=== PATIENT | male | born 2000 | race Caucasian/White ===

== ENCOUNTER 2018-09-13 12:24 | Emergency (ER) | payer MEDICAID, SELFPAY ==
[2018-09-13 12:28] VITALS: BP 126/53; PULSE 47; RESP 12; TEMP 36.6; O2SAT 100; BMI 18.7
--- NOTE | 2018-09-13 12:48 | CT_ITS ---
STUDY: CT ABDOMEN AND PELVIS WITHOUT CONTRAST REASON FOR EXAM: Male, 17 years old. 3 day history of left flank pain. RADIATION DOSAGE (If Supplied By Facility): CTDIvol = ( 6.04 ) mGy, DLP = ( 292.95 ) mGycm TECHNIQUE: Transaxial images were obtained from the dome of the diaphragm to the symphysis pubis without oral contrast, and without intravenous contrast. Sagittal and coronal images were reconstructed. Individualized dose optimization techniques were used for this CT. COMPARISON: None. FINDINGS: The visualized lung bases are unremarkable. The visualized portions of the heart are within normal limits. Normal liver. Normal gallbladder and extrahepatic biliary system. Normal spleen. Normal pancreas. Normal bilateral adrenal glands. Normal right kidney. Normal left kidney. Normal visualized stomach. Normal small intestine. Normal colon. The appendix is visualized and appears normal. Normal abdominal aorta. Normal inferior vena cava. Normal retroperitoneum. Normal urinary bladder. Normal abdominal wall. Loss of the normal lumbar lordosis. CT/Abdomen/Pelvis without Cont IMPRESSION: Normal unenhanced CT of the abdomen and pelvis. Electronically Signed: Blayne Dyer MD at 14:00 EST Tel [phone], Service support ,
[2018-09-13 13:09] LABS: Absolute Neutrophil Count 5.7 X10^3/uL (2.0-7.7); Basophil# 0.02 X10^3/uL; Basophil% 0.2 % (0-1); Eosinophil# 0.04 X10^3/uL; Eosinophils% 0.5 % (0-5); Hematocrit 40.4 % (40-54); Hemoglobin 14.2 g/dl (13.0-16.5); Lymphocyte % 17.1 % (19-41); Mean Corp Hgb Conc 35.1 g/gl (32-36); Mean Platelet Vol. 11.8 fl (6.2-12.0); Monocyte# 1.47 X10^3/uL; Monocyte% 16.8 % (0-10); Neutrophil # 5.71 X10^3/uL (2.7-7.7); Neutrophil % 65.2 % (47-70); POSITIVE COUNT NO; POSITIVE DIFFERENTIAL NO; POSITIVE MORPHOLOGY NO; Platelet Count 153 K/mm3 (150-450); RBC Distribution Width CV 12.2 % (11.6-14.6); RBC Distribution Width SD 40.2 fl (35.1-43.9); Red Blood Count 4.44 M/mm3 (4.6-6.2); White Blood Count 8.8 K/mm3 (4.4-11.0)
[2018-09-13] MEDS: Morphine 4 MG/ML Syringe IV (13:18)
[2018-09-13] MEDS: Ondansetron 4 MG/2 ML Vial IV (13:18)
[2018-09-13] MEDS: 0.9% Normal Saline 1,000 ML 1000 ML IV (13:18)
[2018-09-13 13:22] LABS: AST(SGOT) 20 U/L (15-37); Alanine Aminotransfer ALT/SGPT 19 U/L (16-61); Albumin, Serum 4.1 g/dL (3.2-5.0); Alkaline Phosphatase 62 U/L (45-117); Anion Gap 7 (5-15); BUN 13 mg/dL (7-18); BUN/Creat Ratio 16.4 RATIO (10-20); Chloride 107 mmol/L (98-107); Creatinine, Serum 0.79 mg/dL (0.70-1.30); EST Glomerular Filtration Rate 133 mL/min (>60); Est Glom Filt Rate - Afr Amer 161 mL/min (>60); Estimated Creatinine Clearance 118.92 ml/min; Globulin 3.5 g/dL (2.2-4.2); Glucose 99 mg/dL (74-106); Lipase 35 U/L (73-393); Potassium 4.5 mmol/L (3.5-5.1); Protein, Total 7.6 g/dL (6.4-8.2); Sodium Level 140 mmol/L (136-145)
--- NOTE | 2018-09-13 13:30 | ED.VISSUMM ---
- ER Visit Summary Date of Service: 09/13/18 Chief Complaint: [] Left flank pain since Thursday History of Present Illness: The patient is a 17 M [] denies past history has been had left flank pain since Thursday that he states causes a spasm makes him feel like he has to have a bowel movement he cannot, he was seen today by his family physician outpatient provider, he had office workup rectal exam was unremarkable he had persistent sense of spasm he came to the emergency room for evaluation. He has had no fever no cough he did not eat anything and was not exposed to anything that could have made him ill he has no history of GI elements in fact he denies any past history no meds he does believe his stool has been dark outputs been normal no fever no cough trauma I did speak with his physician Dr. Horn he reports the above history also reported patient had a negative rectal exam today in the office Physical Examination: [] 126/53 afebrile, General, no distress resting comfortably HEENT is generally unremarkable The neck is supple no adenopathy Cardiovascular, regular rate and rhythm Lungs, clear bilateral Abdomen, soft nontender he complains of a vague pain to the left flank the abdominal exams nontender no rebound guarding organomegaly, he negative rectal exam as above in the office declined further rectal, he had a vague left CVAT tenderness no midline back pain Extremities, no clubbing cyanosis or edema Neurologic, awake alert answering questions appropriately moving all 4 extremities Reports a constant urge to have a bowel movement given all the above screening labs CT IV fluids pain management Test Results: [] Emergency Department Course and Treatment: [] LUIS SÁNCHEZ On reevaluation patient symptoms are completely resolved he has no pain he is resting comfortably bed feels back to baseline Patient's labs UA CT flank abdomen unremarkable there is no signs of constipation nothing that appears acute I explained the above to him, at this time started on Bentyl, bland diet and follow-up with his family doctors the next few days Treatment Plan: [] Disposition: [] Home stable Impression: [] Left flank pain etiology unclear This note was generated with [employer] software. It may contain incorrect words, spelling, and punctuation that were not noted in review of the chart prior to signing ED Disposition - Plan for ED Patient: Chief Complaint: Flank Pain Instructions: ED Flank Pain Uncertain Cause Prescriptions: Dicyclomine HCl [Bentyl] 20 mg PO TIDAC #20 cap Referrals: Nathan Rajput MD [Primary Care Provider] -
[2018-09-13 14:53] VITALS: RESP 16
[2018-09-13 14:57] LABS: Bacteria 0 SEEN /hpf (None Seen); Mucous, Urine 0 SEEN /hpf (<or=2+); Red Blood Cells-Urine 0 SEEN /hpf (0-5); Squamous Epithelial Cells - UA 0 SEEN /hpf (0-5); White Blood Cells 0 SEEN /hpf (0-5)
[2018-09-13] MEDS: 0.9% Normal Saline 1,000 ML 999 ML IV (14:58)
[2018-09-13 15:01] LABS: Color, Urine Yellow (Yellow); Glucose, Dipstick Normal (Normal); Ketone-Dipstick 50 mg/dl (Negative); Leukocyte Esterase-Dipstick Negative /ul (Negative); Nitrite-Dipstick Negative (Negative); Occult Blood-Urine Negative /ul (Negative); Protein-Dipstick Negative (Negative); Urine Bilirubin Dipstick Negative (Negative); Urine Clarity Sl. Cloudy (Clear); Urine Urobilinogen Normal (Normal)
[2018-09-13 15:10] LABS: Amorphous Sediment 2+
--- NOTE | 2018-09-13 15:15 | ED.DEP ---
ED Disposition - Plan for ED Patient: Chief Complaint: Flank Pain Instructions: ED Flank Pain Uncertain Cause Prescriptions: Dicyclomine HCl [Bentyl] 20 mg PO TIDAC #20 cap Referrals: Nathan Rajput MD [Primary Care Provider] -
== END 2018-09-13 16:09 | disposition home or self-care (01) ==
PROVIDERS: Emergency Provider Emergency Medicine; Family Provider Pediatrics; PCP Pediatrics
DX: R10.9 Unspecified abdominal pain (principal)
CPT/HCPCS: 74176; 80048; 80076; 81001; 83690; 85025; 96361; 96374; 96375; 99283; J7030; A4216; J2405

== ENCOUNTER 2018-12-15 16:18 | Emergency (ER) | payer MEDICAID, SELFPAY ==
[2018-12-15 16:19] VITALS: BP 141/75; PULSE 38; RESP 18; TEMP 36.1; O2SAT 100; BMI 17.7
== END 2018-12-15 17:26 | disposition left against medical advice (07) ==
LOC: ED 17:24
PROVIDERS: Emergency Provider Emergency Medicine; Family Provider Pediatrics; PCP Pediatrics
DX: R00.1 Bradycardia, unspecified (principal)

== ENCOUNTER 2018-12-16 16:10 | Emergency (ER) | payer MEDICAID, SELFPAY ==
[2018-12-15 16:19] VITALS: BMI 17.7
[2018-12-16 16:13] VITALS: BP 132/86; PULSE 61; RESP 17; TEMP 36.3; O2SAT 98; BMI 18.3
--- NOTE | 2018-12-16 17:14 | EKG12_ITS ---
Test Reason : CINTIA Blood Pressure : / mmHG Vent. Rate : 040 BPM Atrial Rate : 040 BPM P-R Int : 154 ms QRS Dur : 102 ms QT Int : 432 ms P-R-T Axes : 078 093 080 degrees QTc Int : 352 ms Marked sinus bradycardia Early repolarization Confirmed by BABAK HOLLAND MD ([id number]), editor managing director EVERETT BENTON ([id number]) on 12/21/2018 8:44:25 AM Referred By: Confirmed By:BABAK HOLLAND MD
[2018-12-16 18:12] LABS: Absolute Lymphocyte Count 1.78 X10^3/ul (0.83-4.51); Absolute Neutrophil Count 4.2 X10^3/uL (2.0-7.7); Basophil# 0.03 X10^3/uL; Basophil% 0.5 % (0-1); Eosinophil# 0.15 X10^3/uL; Eosinophils% 2.3 % (0-5); Hematocrit 44.2 % (40-54); Hemoglobin 14.4 g/dl (13.0-16.5); Lymphocyte # 1.78 X10^3/ul (4.0); Lymphocyte % 26.7 % (19-41); Mean Corp Hgb Conc 32.6 g/gl (32-36); Mean Corpuscular Hgb 31.1 pg (27.0-32.0); Mean Corpuscular Volume 95.5 fL (80-94); Mean Platelet Vol. 12.1 fl (6.2-12.0); Monocyte# 0.48 X10^3/uL; Monocyte% 7.2 % (0-10); Platelet Count 176 K/mm3 (150-450); RBC Distribution Width CV 12.8 % (11.6-14.6); RBC Distribution Width SD 44.3 fl (35.1-43.9); Red Blood Count 4.63 M/mm3 (4.6-6.2); White Blood Count 6.7 K/mm3 (4.4-11.0)
[2018-12-16 18:14] LABS: POSITIVE COUNT NO; POSITIVE DIFFERENTIAL NO; POSITIVE MORPHOLOGY NO
[2018-12-16 18:35] LABS: Anion Gap 4 (5-15); BUN 15 mg/dL (7-18); BUN/Creat Ratio 19.3 RATIO (10-20); Calcium,Total 8.8 mg/dL (8.5-10.1); Chloride 106 mmol/L (98-107); Creatinine, Serum 0.78 mg/dL (0.70-1.30); EST Glomerular Filtration Rate 135 mL/min (>60); Est Glom Filt Rate - Afr Amer 164 mL/min (>60); Glucose 78 mg/dL (74-106); Magnesium 1.9 mg/dL (1.6-2.6); Potassium 4.4 mmol/L (3.5-5.1); Sodium Level 139 mmol/L (136-145); T4 Free Direct 0.81 ng/dL (0.76-1.46); Thyroid Stim Hormone (TSH) 0.49 uIU/mL (0.358-3.74)
[2018-12-16 18:37] VITALS: BP 109/56; PULSE 43; RESP 13; O2SAT 96
[2018-12-16 19:04] LABS: T3 Total - Triiodothyronine 0.83 ng/mL (0.6-1.81)
--- NOTE | 2018-12-16 19:36 | ED.VISSUMM ---
- ER Visit Summary Date of Service: 12/16/18 Chief Complaint: Bradycardia History of Present Illness: The patient is a 18 M who went to see his PCP yesterday for anxiety. He was noted to be bradycardic and was sent to the emergency room. He left without being seen yesterday due to a busy ER. Patient reports occasional lightheadedness. He reports a single episode of syncope several years ago. He does not have palpitations. He is not currently taking any medications. Physical Examination: Blood pressure is 132/86, temperature 97.3, heart rate 61, respiratory rate 17, socks 98% on room air. Patient sitting upright in bed no acute distress. He is alert and talkative. Head neck examination normal. Is bradycardic and regular. Lungs sounds clear. Abdomen is soft nontender. Test Results: EKG is sinus at 40. There are inferior changes consistent with early repol. CBC and chemistry studies are unremarkable. Magnesium is normal. TSH, T3, free T4 are all normal. Emergency Department Course and Treatment: Patient was maintained on chief executive or managing director here. Heart rate ranged from upper 30s to low 60s. I did review patient's prior visits to the emergency room. 2 years ago his heart rate was in the low 50s. He was seen September [id number] with a heart rate of 47. His vital signs yesterday documented a heart rate of 38. Patient does have EKGs and paperwork from his PCPs office with him. EKG revealed heart rate in the 30s in the office yesterday. He does have repol changes that is often read by the EKG machine as a STEMI. Test results were discussed with the patient. I spoke with Dr. Santana, on-call for the patient's primary care physician. Patient is to call the office tomorrow for further follow-up and cardiology referral. Patient understands the plan. Treatment Plan: [] Disposition: Discharge Impression: Bradycardia This note was generated with [employer] dictation software. It may contain incorrect words, spelling, and punctuation that were not noted in review of the chart prior to signing ED Disposition - Plan for ED Patient: Disposition: Home or Assisted Living Instructions: ED Bradycardia Referrals: Luis Hilliard MD [Primary Care Provider] - As soon as possible Additional Instructions: Call Dr Hilliard's office tomorrow. They will help arrange follow-up with a heart doctor. If you have recurrent episodes of dizziness or passing out, please return to ED immediately.
[2018-12-16 19:44] VITALS: BP 107/61; PULSE 51; RESP 16; O2SAT 98
--- NOTE | 2018-12-16 19:44 | ED.RN ---
THIS NURSE REVIEWED D/C INSTRUCTIONS WITH PT. PT VERBALIZED UNDERSTANDING OF INSTRUCTIONS. IV D/C. IV CATHETER INTACT. PT TOLERATED WELL. PT DENIES FURTHER NEEDS OR QUESTIONS AT THIS TIME. PT AMBULATES FROM ROOM ON OWN WITHOUT ASSISTANCE FROM STAFF
== END 2018-12-16 19:46 | disposition home or self-care (01) ==
PROVIDERS: Emergency Provider Emergency Medicine; Family Provider Family Medicine; PCP Family Medicine
DX: R00.1 Bradycardia, unspecified (principal); F41.9 Anxiety disorder, unspecified; Z72.0 Tobacco use; Z79.899 Other long term (current) drug therapy
CPT/HCPCS: 80048; 83735; 84439; 84443; 84480; 85025; 93005; 99284; A4216

== ENCOUNTER 2025-10-10 18:31 | Emergency (ER) | payer BC, SELFPAY ==
[2025-10-10 18:35] VITALS: BP 153/98; PULSE 58; RESP 20; TEMP 36.4; O2SAT 95; BMI 18.1
--- NOTE | 2025-10-10 18:47 | EX.ED.DYSGE1 ---
HPI History of Present Illness Chief Complaint: Overdose [facility] Medical History (Updated 10/10/25 @ 18:42 by Oliva Jaffe) Bradycardia Home Medications ?Medication ?Instructions ?Recorded ?Last Taken ?Type NK 10/10/25 Unknown History Allergy/AdvReac Type Severity Reaction Status Date / Time Penicillins (PCN) Allergy Unknown Verified 10/10/25 18:40 Social History Smoking Status: Current every day smoker tobacco type: cigarettes EXAM Physical Exam Const Vital Signs: 10/10/25 18:35 10/10/25 19:31 10/10/25 20:00 Temperature 97.6 F L Temperature Source Oral Pulse Rate 58 L 78 72 Respiratory Rate 20 H 18 16 Blood Pressure 153/98 H 169/78 H 144/92 H Blood Pressure Mean 116 108 109 Pulse Ox 95 95 96 Oxygen Delivery Method Room Air Room Air Room Air 10/10/25 20:56 Temperature Temperature Source Pulse Rate 69 Respiratory Rate 16 Blood Pressure 137/85 H Blood Pressure Mean 102 Pulse Ox 98 Oxygen Delivery Method Room Air MDM MDM MDM Narrative Medical decision making narrative: HISTORY OF PRESENT ILLNESS: Chief complaint: Intentional overdose 24-year-old male with no reported history presents with concern for suicidal attempt. Patient notes he tried to kill himself by snorting a large amount of ketamine. Patient could not elaborate on why he attempted this today. He may have a history of bipolar disorder but is not medicated. He denies homicidal ideation auditory visual loose [place]. Denies any physical complaints. Denies any other drug use. REVIEW OF SYSTEMS: Pertinent positives: Suicidal ideation Pertinent negatives: Chest pain, shortness of breath. PHYSICAL EXAM: Nursing triage notes reviewed, Vital signs reviewed Constitutional: please see mdm HENT: MMM Eyes: Pupils equal round and reactive to light, Extraocular muscles intact Neck: No stridor, no JVD, full neck ROM Lungs: Clear to auscultation, No wheezing or rales. No increased work of breathing, no conversational dyspnea, no accessory muscle use, no nasal flaring. No respiratory distress noted Heart: Regular rate and rhythm, No murmurs, No rubs and No gallops, 2+ distal pulses (radial, femoral, posterior tibial) in all extremities Abdomen: Soft, there is no tenderness, rigidity, rebound or guarding, no obvious peritoneal signs, no palpable pulsatile abdominal masses, no auscultated abdominal bruit : No CVAT Extremities: No edema Neuro: No new focal neurological deficits, cranial nerves II through XII intact, 5/5 strength in all present extremities. Intact sensation to light touch in all present extremities, 2+ reflexes bilateral patella tendons. Skin: No rash or lesions noted Psych: Flat affect, goal-directed thought process, not tangential, does not appear to responding to internal stimuli. MEDICAL DECISION MAKING: Chief Complaint: please see HPI External records reviewed: Reviewed prior ED visit Factors affecting care: depression, Social determinants of health: History of mental health disorder History obtained from others: Police Consults: Behavioral health MDM Narrative: Patient was initially hemodynamically stable, afebrile and nontoxic-appearing. Exam unremarkable. Patient did not appear to be under the effects of ketamine. For example there is no nystagmus noted Obtain medical clearance labs including coingestions like Tylenol and salicylate levels. Consult to case management/behavioral health ALL IMAGES (IF OBTAINED) HAVE BEEN PERSONALLY REVIEWED AND INTERPRETED BY MYSELF. Tylenol, salicylate negative Serum alcohol negative CBC with leukocytosis suggestive of systemic inflammation (likely not clinically relevant as patient does not have a fever or source of infection) this may be reactive, no anemia or thrombocytopenia CMP without evidence of acute kidney injury, significant electrolyte abnormality, anion gap to suggest end organ hypo-perfusion, no evidence of metabolic acidosis with a normal bicarbonate, no evidence of hepatobiliary obstructive pathology. Urine tox screen positive cannabinoids otherwise negative Suicidal attempt Patient was observed in the ED and showed no sign of ketamine intoxication. There is no nystagmus, no loss of consciousness, no dissociative response. Patient's vitals remained stable. He was medically cleared. Behavioral health/crisis evaluated patient in ED and recommended placement. I agree with this assertion given concern for suicide attempt. Arrangements will be made for inpatient psychiatric stay. [place] slip signed. Transport form signed. The patient and/or family, caregivers express understanding. The patient and/or family, caregivers agrees with the plan. Shared decision making: I will have a discussion with the patient and or visitors regarding risk/benefits of further testing or admission. They will be made aware of of the risk/benefits inherent in this decision they will be given the opportunity to voice understanding. Total critical care time today provided was at least 0 minutes. This excludes separately billable procedures. Critical care time (if documented) is secondary to the patient having high probability of clinically significant/life threatening deterioration in the patient's condition which required my urgent intervention. Impression: 1. Suicide attempt 2. Suicidal ideation 3. Attempted overdose Dispo: Transfer to psychiatric facility. Patient currently excepted at outside psych facility awaiting transport which did occur at approximately 7 AM on 10/11/2025. This note was generated with [employer] dictation software. It may contain incorrect words, spelling, and punctuation that were not noted in review of the chart prior to signing. Lab Data Labs: Laboratory Results - last 24 hr 10/10/25 10/10/25 18:20 19:00 WBC 13.1 H RBC 5.02 Hgb 16.3 Hct 46.9 MCV 93.4 MCH 32.5 H MCHC 34.8 RDW Std Deviation 44.3 H RDW Coeff of Monse 12.9 Plt Count 213 MPV 11.7 Immature Gran % (Auto) 0.500 Neut % (Auto) 71.9 H Lymph % (Auto) 17.7 L [place] % (Auto) 8.6 Eos % (Auto) 0.8 Baso % (Auto) 0.5 Absolute Neuts (auto) 9.4 H Absolute Lymphs (auto) 2.33 Nucleated RBC % 0 Sodium 141 Potassium 3.6 Chloride 103 Carbon Dioxide 21.7 Anion Gap 16 BUN 17 Creatinine 0.94 Estim Creat Clear Calc 93.65 Est GFR (MDRD) Non-Af 115 BUN/Creatinine Ratio 18.6 Glucose 123 H Calcium 10.0 Total Bilirubin 0.43 AST 39 H ALT 36 Alkaline Phosphatase 88 Total Protein 8.7 H Albumin 5.2 H Globulin 3.4 Albumin/Globulin Ratio 1.5 Salicylates < 0.5 L Urine Opiates Screen NEGATIVE U Buprenorphine Qual NEGATIVE Ur Oxycodone Screen NEGATIVE Urine Methadone Screen NEGATIVE Urine Fentanyl Screen NEGATIVE Acetaminophen < 5.0 L Ur Barbiturates Screen NEGATIVE Ur Phencyclidine Scrn NEGATIVE Ur Amphetamines Screen NEGATIVE U Benzodiazepines Scrn NEGATIVE Urine Cocaine Screen NEGATIVE U Cannabinoids Screen PRESUMPTIVE POSITIVE Ethyl Alcohol < 10.1 Discharge Plan Triage Chief Complaint: Overdose Other Complaint: Suicidal ED Provider: Duy Oseguera Dx/Rx/DC Orders Prescriptions: No Action NK Primary Care Provider: Luis Hilliard Referrals: Luis Hilliard MD [Primary Care Provider, Family Practice] Print Language: Romanian
[2025-10-10 19:06] LABS: Hematocrit 46.9 % (40-54); Hemoglobin 16.3 g/dL (13.0-16.5); Immature Granulocytes Count 0.060 X10^3/uL (0.0-0.0); Mean Corp Hgb Conc 34.8 g/dL (32-36); Mean Corpuscular Volume 93.4 fL (80-94); Mean Platelet Vol. 11.7 fl (6.2-12.0); NRBC Flagged by Analyzer 0 % (0-5); Platelet Count 213 K/mm3 (150-450); RBC Distribution Width CV 12.9 % (11.6-14.6); RBC Distribution Width SD 44.3 fl (35.1-43.9); Red Blood Count 5.02 M/mm3 (4.6-6.2); White Blood Count 13.1 K/mm3 (4.4-11.0)
[2025-10-10 19:26] LABS: AST(SGOT) 39 U/L (<=37); Alanine Aminotransfer ALT/SGPT 36 U/L (<=46); Albumin, Serum 5.2 g/dL (3.5-5.0); Alkaline Phosphatase 88 U/L (40-129); Anion Gap 16 (7-18); BUN 17 mg/dL (4-19); BUN/Creat Ratio 18.6 RATIO (10-20); Calcium,Total 10.0 mg/dL (7.6-11.0); Carbon Dioxide 21.7 mmol/L (20.0-29.0); Chloride 103 mmol/L (96-106); Estimated Creatinine Clearance 93.65 ml/min (50-250); Globulin 3.4 g/dL (2.2-4.2); Glucose 123 mg/dL (70-99); Potassium 3.6 mmol/L (3.5-5.1)
[2025-10-10 19:31] VITALS: BP 169/78; PULSE 78; RESP 18; O2SAT 95
[2025-10-10 19:34] LABS: Barbiturate Urine NEGATIVE (< 200 ng/mL); Benzodiazepine Urine NEGATIVE (< 200 ng/mL); PCP Urine NEGATIVE (< 25 ng/mL); THC Urine PRESUMPTIVE POSITIVE (< 50 ng/mL)
--- NOTE | 2025-10-10 19:46 | CM.ED ---
Social Work SW initially showed with no insurance, SW contacted crisis to complete assessment. Face sheet, pink slip and physician note faxed to crisis. SW met with patient to explain process and patient stated he did have insurance through his employer. Patient stated he did not have his insurance card with him but could call a friend and have them bring his card to ED. SW got patients phone and gave to patient to contact friend. fruit or nut farmworker already in ED, notified that patient does have active insurance. No further needs at this time. Muna Pike, WAREHOUSE REPRESENTATIVE, SOLDERER
[2025-10-10 20:00] VITALS: BP 144/92; PULSE 72; RESP 16; O2SAT 96
[2025-10-10 20:05] LABS: Acetaminophen (Tylenol) Level < 5.0 ug/mL (8.0-19.0); Alcohol, Blood (Medical)-Serum < 10.1 mg/dL (<=10.0); Salicylate < 0.5 mg/dL (2.8-20.0)
--- OUTSIDE RECORDS SUMMARY | 2025-10-10 20:32 | XMS RPT_ITS | CCD ---
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 Role Phone Dion Hilliard MD Primary Care Provider DION HILLIARD Primary Care Unavailab NANY Rich Attending Unavailable DION HILLIARD Primary Care Unavailab DION Geller Primary Care Unavailab stratton Allergies Allergy Classification Reported Allergen(s) Allergy Type Date of Onset Reaction(s) Facility (6 sources) Penicillins; Translations: [PENICILLINS] Propensity to adverse reactions 03-05-2007 [facility] Work Phone: Medications Completed/Discontinued Medications Medication Drug Class(es) Dates Sig (Normalized) Sig (Original) sertraline 50 mg oral tablet (4 sources) Serotonin Reuptake Inhibitor Start: 12-15-2018 End: 08-02-2024 take 1 tablet by mouth once daily sertraline (ZOLOFT) 50 mg tablet Indications: Moderate episode of recurrent major depressive disorder (HCC) , Marijuana smoker Take 1 tablet by mouth once daily. 30 tablet 3 12/15/2018 08/02/2024 Discontinued (Discontinued by Patient) Comment on above: Take 1 tablet by brigitte once daily. Problems Active Problems Problem Classification Problem Date Documented Da te Episodic/Chronic Abdominal pain (1 source) Flank pain; Translations: [Unspecified abdominal pain] 01-04-2024 Episodic Anxiety disorders (5 sources) Anxiety; Translations: [Anxiety disorder, unspecified] Onset: 02-16-2015 02-16-2015 Chronic Mood disorders (5 sources) Depressive disorder; Translations: [Depression] 12-15-2018 Chronic Other non-traumatic joint disorders (1 source) Pain of left wrist; Translations: [Pain in left wrist] 11-12-2021 Episodic Substance-related disorders (5 sources) Marijuana user; Translations: [Cannabis use, unspecified, uncomplicated] 12-15-2018 Episodic Past or Other Problems Problem Classification Problem Date Documented Da te Episodic/Chronic Genitourinary symptoms and ill-defined conditions (6 sources) Increased frequency of urination; Translations: [Frequency of micturition] Onset: 01-05-2024 01-04-2024 Episodic Other screening for suspected conditions (not mental disorders or infectious disease) (3 sources) Patient encounter status; Translations: [Encounter for screening for other disorder] Onset: 01-05-2024 01-05-2024 Episodic Results Test Name Value Interpretation Reference Range Facil it[facility] SAMIR ALL[facility] ([id number]) 2000 Date Time Provider Department 08/03/24 ELLIOTT PAULINO [facility] During your visit today, we recorded the following information about you: Mario Thomas MA 08/03/2024 7:26 AM Signed ----- Message from Alhaji Zamarripa APRN.FRUIT BAR MAKER sent at 08/03/2024 7:04 AM EDT ----- Please inform patient that her gonorrhea and Chlamydia test were negative. Mario Thomas MA 08/03/2024 7:26 AM Signed Patient given results and verbalized understanding of instructions given. Mario Thomas MA Allergies As of Date: 08/03/2024 Noted Allergy Reaction PENICILLINS 03/05/2007 Date Reviewed: 08/02/2024 Reviewed by: Juana Stevenson APRN.FRUIT BAR MAKER - Fully Assessed Reason for Visit: Results [95] Meds Comments as of 08/11/2018: 08/11/18 No daily medications Julieta Singh RN Problem List As Of Date 08/03/2024 Noted Resolved Anxiety [F41.9] 02/16/2015 Depression [F32.A] Marijuana smoker [F12.90] Encounter Status:Closed by MARIO THOMAS on 08/03/24 Normal [facility] C. trachomatis+N. gonorrhoea e DNA MAME+probe Ql (Unsp spec)on 08-02-2024 C. trachomatis rRNA MAME+probe Ql (Unsp spec) Negative Normal Negative for Chlamydia trachomatis by amplificaton [facility] Comment on above: Order Comment: Speci men Type: URINE SPECIMENOrdering Facility: [facility] Address: [address] [place] [address] Performed By: #### 6 30-4 #### [facility] CLIA [id number] [address] [place] [address] STATES OF [facility] N. gonorrhoeae rRNA MAME+probe Ql (Unsp spec) Negative Normal Negative for Neisseria gonorrhoeae by amplification [facility] Comment on above: Order Comment: Speci men Type: URINE SPECIMENOrdering Facility: [facility] Address: [address] [place] [address] Performed By: #### 6 30-4 #### [facility] CLIA [id number] [address] [place] [address] [place] CNOVon 08-02-2024 CNOV Office Visit (UCTR ) SAMIR ALLISON ([id number]) 2000 M Date Time Provider Department 08/02/24 10:00 AM JUANA STEVENSON [facility] During your visit today, we recorded the following information about you: Temperature Pulse Respiration Blood pressure 97.1 degrees 56/minute 16/minute 123/73 Weight 58.8 kg Juana Stevenson APRN.CNP 08/02/2024 5:43 PM Addendum Subjective HPI Nontoxic-appearing male presents urgent care requesting STD testing. States recently had a new sexual partner. Concerned about possible STDs. No symptoms. Patient denies any history of STDs in the past. Had unprotected vaginal intercourse. Denies any penile drainage testicular pain scrotal swelling rashes. Past medical history prescription medications allergies reviewed. .Patient presents with: STD: No sx, wants checked PAST MEDICAL HISTORY Diagnosis Date ADHD (attention deficit hyperactivity disorder) Anxiety Broken finger 2014 pinky right hand Broken wrist 2005 Pt broke right wrist Depression Marijuana smoker Tobacco use disorder PAST SURGICAL HISTORY Procedure Laterality Date NONE ALLERGIES Penicillins MEDICATIONS No prescriptions on file. FAMILY HISTORY Problem Relation Age of Onset Alcohol/Drug Mother COPD Mother other (bipolar) Mother Alcohol/Drug Father Alcohol/Drug Sister drug overdose Bipolar disorder Sister Cancer Paternal Aunt lung Social History Tobacco Use Smoking status: Every Day Current packs/day: 1.00 Average packs/day: 1 pack/day for 9.8 years (9.8 ttl pk-yrs) Types: Cigarettes Start date: 10/23/2014 Smokeless tobacco: Never Tobacco comments: 1-2 every other day Vaping Use Vaping status: Some Days Substances: Nicotine, THC, CBD, Flavoring Devices: Disposable Substance Use Topics Alcohol use: Not Currently Comment: rarely Drug use: Yes Frequency: 14.0 times per week Types: Marijuana BP 123/73 Pulse (!) 56 Temp 36.2 ?C (97.1 ?F) Resp 16 Wt 58.8 kg (129 lb 10.1 oz) SpO2 98% BMI 19.42 kg/m? Review of Systems Constitutional: Negative for chills, fever and malaise/fatigue. Cardiovascular: Negative for chest pain. Gastrointestinal: Negative for abdominal pain, constipation, diarrhea, nausea and vomiting. Genitourinary: Negative for dysuria, flank pain, frequency, hematuria and urgency. Musculoskeletal: Negative for myalgias. Objective Physical Exam Vitals and nursing note reviewed. Constitutional: General: He is not in acute distress. Appearance: He is not diaphoretic. HENT: Head: Jaw: No trismus. Right Ear: Hearing and ear canal normal. No decreased hearing noted. No drainage, swelling or tenderness. Tympanic membrane is not perforated, erythematous or bulging. Left Ear: Hearing, tympanic membrane and ear canal normal. No decreased hearing noted. No drainage, swelling or tenderness. Tympanic membrane is not perforated, erythematous or bulging. Mouth/Throat: Pharynx: Uvula midline. No oropharyngeal exudate, posterior oropharyngeal erythema or uvula swelling. Tonsils: No tonsillar abscesses. Eyes: General: Right eye: No discharge. Left eye: No discharge. Conjunctiva/sclera: Conjunctivae normal. Pupils: Pupils are equal, round, and reactive to light. Cardiovascular: Rate and Rhythm: Normal rate and regular rhythm. Heart sounds: Normal heart sounds. Pulmonary: Effort: Pulmonary effort is normal. No respiratory distress. Breath sounds: Normal breath sounds. Chest: Chest wall: No tenderness. Abdominal: General: Bowel sounds are normal. There is no distension. Palpations: Abdomen is soft. Abdomen is not rigid. Tenderness: There is no abdominal tenderness. There is no guarding or rebound. Negative signs include Bashir's sign and McBurney's sign. Genitourinary: Comments: Deferred exam Musculoskeletal: General: No tenderness. Lymphadenopathy: Head: Right side of head: No submental, submandibular, tonsillar, preauricular, posterior auricular or occipital adenopathy. Left side of head: No submental, submandibular, tonsillar, preauricular, posterior auricular or occipital adenopathy. Cervical: Right cervical: No superficial or posterior cervical adenopathy. Left cervical: No superficial or posterior cervical adenopathy. Skin: General: Skin is warm and dry. Findings: No rash. Neurological: Mental Status: He is alert and oriented to person, place, and time. ASSESSMENT/PLAN: 1. Screening for STD (sexually transmitted disease) - ICD9: V74.5, ICD10: Z11.3 - GONORRHEA/CHLAMYDIA NAAT Gonorrhea chlamydia test via urine dip. Treat accordingly test results. Since its only been 48 hours since new sexual partner this test will not be sensitive to any recent exposure. Patient was educated on supportive therapies. Patient will follow up with primary care provider as needed. Patient (more content not included)... Normal [facility] ([id number]) 2000 M Date Time Provider Department 01/06/24 JAYANT COTTRELL During your visit today, we recorded the following information about you: Jayant Cottrell APRN.CNP 01/06/2024 8:23 AM Signed Please notify urine culture negative. Continue f/u with urology. Alejandra Mcgraw 01/06/2024 9:11 AM Signed Called patient and voicemail is not set up so could not leave message. Will try to call back later. Mario Schmitt MA 01/06/2024 6:00 PM Signed Patient given results and verbalized understanding of instructions given. Mario Thomas MA Allergies As of Date: 01/06/2024 Noted Allergy Reaction PENICILLINS 03/05/2007 Date Reviewed: 01/05/2024 Reviewed by: Leroy Willson LPN - Fully Assessed Reason for Visit: Results [95] Prescriptions as of 01/06/2024 - sertraline (ZOLOFT) 50 mg tablet Take 1 tablet by mouth once daily. Meds Comments as of 08/11/2018: 08/11/18 No daily medications Julieta Singh RN Problem List As Of Date 01/06/2024 Noted Resolved Anxiety [F41.9] 02/16/2015 Depression [F32.A] Marijuana smoker [F12.90] Encounter Status:Closed by MARIO THOMAS on 01/06/24 [facility] CNOVon 01-05-2024 CNOV Office Visit (UROLWS ) SAMIR ALLISON ([id number]) 2000 M Date Time Provider Department 01/05/24 11:00 AM NANY CARLOS During your visit today, we recorded the following information about you: Temperature Pulse Respiration Blood pressure 98.1 degrees 64/minute 12/minute 108/76 Weight Height 60.1 kg 1.74 m Demetris LeroyBENNY parker 01/05/2024 6:49 PM Signed Verified name and date of . CC Post Void Residual HPI: Samir Allison is a 23 year old male. The patient is here now for an appointment with SARAH Loco MT, PA-COV. Procedure: Explained procedure to patient and verbalizes understanding. Performed a PVR. Patient urinated and instructed to empty bladder as much as possible just prior to having PVR done using bladder ultrasound scanner. Results of scan: x mL The patient tolerated the procedure well. Plan: Appointment with Nany Benson PA-C 01/05/2024 6:49 PM Signed [facility] NEW PATIENT CLINIC NOTE SERVICE DATE: 01/05/2024 SERVICE TIME: 11:44 AM NAME: Samir Allison CHIEF COMPLAINT: hematuria HISTORY OF PRESENT ILLNESS: Samir Allison is a 23 year old male presenting as an New Patient for hematuria The patient reports having abdominal pain and pubic pain and was seen at urgency care and found to have to have blood on UA Dicussed hematuria and he denies any gross hematuria so will get 3 UA with Microscopic if all 3 have RBC's will need a full hematuria work-up Urine culture is pending No renal imaging , and will need Renal US LUTS: DYSURIA: no URGENCY: No FREQUENCY:6 per day NOCTURIA: 0 per night STRAINING TO VOID: No EMPTIES COMPLETELY: Yes UTI: No GROSS HEMATURIA: no UA DIPSTICK POSITIVE ONLY: yes Other symptoms: LABS: No results found for: TESTOST No results found for: TESTFREE No results found for: PSA No results found for: HCT No results found for: PSA Creatinine Date Value Ref Range Status 12/21/2018 0.84 0.73 - 1.22 mg/dL Final MEDICATIONS: sertraline (ZOLOFT) 50 mg tablet Take 1 tablet by mouth once daily. PAST MEDICAL HISTORY: PAST MEDICAL HISTORY Diagnosis Date ADHD (attention deficit hyperactivity disorder) Anxiety Broken finger 2014 pinky right hand Broken wrist 2005 Pt broke right wrist Depression Marijuana smoker Tobacco use disorder PAST SURGICAL HISTORY: PAST SURGICAL HISTORY Procedure Laterality Date NONE FAMILY HISTORY: FAMILY HISTORY Problem Relation Age of Onset Alcohol/Drug Mother COPD Mother other (bipolar) Mother Alcohol/Drug Father Alcohol/Drug Sister drug overdose Bipolar disorder Sister Cancer Paternal Aunt lung SOCIAL HISTORY: Social Connections: Not on file REVIEW OF SYSTEMS: GENERAL: No fever, chills, weight loss, or fatigue. ENMT: Negative CARDIOVASCULAR:NO CHEST PAIN, PALPITATIONS, ANKLE EDEMA RESPIRATORY: No chronic cough, wheezing, dyspnea, hemoptysis. GENITOURINARY: SEE HPI MUSCULOSKELETAL:NO CHRONIC BACK PAIN, ARTHRITIS, CHRONIC NECK PAIN SKIN: NO VARICOSE VEINS, RASH, ABNORMAL ITCHING HEME/LYMPH/IMMUNE:Neg ative for prolonged bleeding, bruising easily or swollen nodes NEUROLOGICAL: NO HEADACHES, NUMBNESS, SEIZURES, STROKE DIABETES: no All other systems reviewed and are negative PHYSICAL EXAMINATION: Blood pressure 108/76, pulse 64, temperature 36.7 ?C (98.1 ?F), temperature source Temporal, resp. rate 12, height 174 cm (5' 8.5), weight 60.1 kg (132 lb 6.4 oz), SpO2 97%. GENERAL: WNL nutrition, no deformities, healthy appearing NEURO: Awake, alert and oriented x 3 and Normal gait PSYCH: No signs of depression, anxiety, or agitation ENMT (Ear, Nose, Mouth, Throat): No masses, adenopathy, icterus. Thyroid nonpalpable RESP: NL effort, no retractions or purse-lip breathing. CV: No extremity swelling, varices, edema, pallor, erythema GASTROINTESTINAL: Soft, nontender, nondistended, no masses. HERNIAS: None SKIN: No rash, lesions No palpable lymphadenopathy MUSCULOSKELETAL: Extremities normal. No deformities, edema, clubbing or skin discoloration. PROBLEM LIST REVIEW: Yes LABS: Results for orders placed or performed in visit on 01/04/24 UA DIP, URINE (POC) Result Value Ref Range GLUCOSE UA (POCT) Negative Negative mg/dL BILIRUBIN UA (POCT) Negative Negative KETONE UA (POCT) Negative Negative mg/dL SPECIFIC GRAVITY UA (POCT) 1.025 1.005 - 1.030 HEMOGLOBIN/BLOOD UA (POCT) Moderate (A) Negative PH UA (POCT) 7.0 4.5 - 8.0 PROTEIN UA (POCT) Negative Negative mg/dL UROBILINOGEN UA (POCT) 1.0 Normal E.U./dL NITRITE UA (POCT) Negative Negative LEUKOCYTES UA (POCT) Negative Negative COLOR UA (POCT) Yellow CLARITY UA (POCT) Clear Urine Microscopy x 3 - pending Urine Culture: Pending PROCEDURES: PVR: 9 ml IMAGING: (more content not included)... Normal [facility] Urinalysis complete panel (U )on 01-05-2024 Bacteria LM.HPF (Urine sed) [#/Area] Negative Negative /HPF [facility] Bilirubin Ql (U) Negative Negative [facility] Clarity (Unsp spec) Turbid Abnormal Clear [facility] Color (U) Yellow Yellow [facility] Epithelial cells LM.HPF (Urine sed) [#/Area] None Seen [facility] Glucose Test strip (U) [Mass/Vol] Negative Negative [facility] Hemoglobin Ql (U) Negative Negative [facility] Hyaline casts (Urine sed) [#/Area] 0 /[LPF] 0 /LPF [facility] Ketones Ql (U) Negative Negative [facility] Leukocyte esterase Test strip Ql (U) Negative Negative [facility] Nitrite Ql (U) Negative Negative [facility] pH (U) 7.0 [pH] <8.5 [facility] Protein (U) [Mass/Vol] Trace Abnormal Negative [facility] RBC LM.HPF (Urine sed) [#/Area] 0-2 /HPF 0-2 /HPF [facility] Specific gravity (U) [Rel density] 1.028 1.005 - 1.030 [facility] Urobilinogen Ql (U) 1.0 EU/dL 0.2-1.0 EU/dL [facility] WBC LM.HPF (Urine sed) [#/Area] 0-5 /HPF 0-5 /HPF [facility] Bacteria LM.HPF (Urine sed) [#/Area] Negative Normal Negative [facility] Comment on above: Order Comment: Speci men Type: URINE SPECIMEN [facility] Address: [address] [place] [address] Performed By: #### 2 4356-8 #### [facility] CLIA [id number] [address] [place] [address] [place] [address] [place] Bilirubin Ql (U) Negative Normal Negative [facility] Comment on above: Order Comment: Speci men Type: URINE SPECIMEN [facility] Address: [address] [place] [address] Performed By: #### 2 4356-8 #### [facility] CLIA [id number] [address] [place] [address] [place] Clarity (Unsp spec) Turbid Abnormal Clear [facility] Comment on above: Order Comment: Speci men Type: URINE SPECIMEN [facility] Address: [address] [place] [address] Performed By: #### 2 4356-8 #### [facility] CLIA [id number] [address] [place] [address] [place] Color (U) Yellow Normal Yellow [facility] Comment on above: Order Comment: Speci men Type: URINE SPECIMEN [facility] Address: [address] [place] [address] Performed By: #### 2 4356-8 #### [facility] CLIA [id number] [address] [place] [address] [place] Epithelial cells LM.HPF (Urine sed) [#/Area] None Seen Normal [facility] Comment on above: Order Comment: Speci men Type: URINE SPECIMEN [facility] Address: [address] [place] [address] Performed By: #### 2 4356-8 #### [facility] CLIA [id number] [address] [place] [address] [place] Glucose Test strip (U) [Mass/Vol] Negative Normal Negative [facility] Comment on above: Order Comment: Speci men Type: URINE SPECIMEN [facility] Address: [address] [place] [address] Performed By: #### 2 4356-8 #### [facility] CLIA [id number] [address] [place] [address] [place] Hemoglobin Ql (U) Negative Normal Negative [facility] Comment on above: Order Comment: Speci men Type: URINE SPECIMEN [facility] Address: [address] [place] [address] Performed By: #### 2 4356-8 #### [facility] CLIA [id number] [address] [place] [address] [place] Hyaline casts (Urine sed) [#/Area] 0 /[LPF] Normal 0 /LPF [facility] Comment on above: Order Comment: Speci men Type: URINE SPECIMEN [facility] Address: [address] [place] [address] Performed By: #### 2 4356-8 #### [facility] CLIA [id number] [address] [place] [address] [place] Ketones Ql (U) Negative Normal Negative [facility] Comment on above: Order Comment: Speci men Type: URINE SPECIMEN [facility] Address: [address] [place] [address] Performed By: #### 2 4356-8 #### [facility] CLIA [id number] [address] [place] [address] [place] Leukocyte esterase Test strip Ql (U) Negative Normal Negative [facility] Comment on above: Order Comment: Speci men Type: URINE SPECIMEN [facility] Address: [address] [place] [address] Performed By: #### 2 4356-8 #### [facility] CLIA [id number] [address] [place] [address] [place] Nitrite Ql (U) Negative Normal Negative [facility] Comment on above: Order Comment: Speci men Type: URINE SPECIMEN [facility] Address: [address] [place] [address] Performed By: #### 2 4356-8 #### [facility] CLIA [id number] [address] [place] [address] [place] pH (U) 7.0 [pH] Normal <8.5 [facility] Comment on above: Order Comment: Speci men Type: URINE SPECIMEN [facility] Address: [address] [place] [address] Performed By: #### 2 4356-8 #### [facility] CLIA [id number] [address] [place] [address] [place] Protein (U) [Mass/Vol] Trace Abnormal Negative [facility] Comment on above: Order Comment: Speci men Type: URINE SPECIMEN [facility] Address: [address] [place] [address] Performed By: #### 2 4356-8 #### [facility] CLIA [id number] [address] [place] [address] [place] RBC LM.HPF (Urine sed) [#/Area] 0-2 /HPF Normal 0-2 /HPF [facility] Comment on above: Order Comment: Speci men Type: URINE SPECIMEN [facility] Address: [address] [place] [address] Performed By: #### 2 4356-8 #### [facility] CLIA [id number] [address] [place] [address] [place] Specific gravity (U) [Rel density] 1.028 Normal 1.005-1.030 [facility] Comment on above: Order Comment: Speci men Type: URINE SPECIMEN [facility] Address: [address] [place] [address] Performed By: #### 2 4356-8 #### [facility] CLIA [id number] [address] [place] [address] [place] Urobilinogen Ql (U) 1.0 EU/dL Normal 0.2-1.0 EU/dL [facility] Comment on above: Order Comment: Speci men Type: URINE SPECIMEN [facility] Address: [address] [place] [address] Performed By: #### 2 4356-8 #### [facility] CLIA [id number] [address] [place] [address] [place] WBC LM.HPF (Urine sed) [#/Area] 0-5 /HPF Normal 0-5 /HPF [facility] Comment on above: Order Comment: Speci men Type: URINE SPECIMEN [facility] Address: [address] [place] [address] Performed By: #### 2 4356-8 #### [facility] [place] [id number] [address] [place] [address] [place] Bacteria Ur Culton Bacteria identified Cx Nom (U) CULTURE, URINE: No growth (<1,000 CFU/ml) Normal [facility] Comment on above: Performed By: #### 6 30-4 #### [facility] CLIA [id number] [address] [place] [address] [place] CNOVon 01-04-2024 CNOV Office Visit (WSTR ) SAMIR ALLISON ([id number]) 2000 M Date Time Provider Department 01/04/24 5:00 PM TOY HORNE [facility] During your visit today, we recorded the following information about you: Temperature Pulse Respiration Blood pressure 98.6 degrees 60/minute 16/minute 122/78 Weight 60.5 kg Toy Horne PA 01/04/2024 5:18 PM Signed This note was created using [employer]. Subjective Samir Allison is a 23 year old male. HPI 23-year-old male presents for left lower abdominal pain, urinary urgency x 3 days. Patient states he started getting left-sided flank pain radiating towards his left lower abdomen over the past couple of days. He states the pain is now in his lower groin/bladder area. Pain is a 1/10. States it is a dull ache currently. Denies any nausea, vomiting, back pain. Has not noticed any blood in his urine. He states he feels the urge to urinate, but then only goes a small amount. He is still urinating. No burning with urination. No concern for STD. No penile discharge. No testicular pain. No history of kidney stones. PAST MEDICAL HISTORY Diagnosis Date ADHD (attention deficit hyperactivity disorder) Anxiety Broken finger 2014 pinky right hand Broken wrist 2005 Pt broke right wrist Depression Marijuana smoker PAST SURGICAL HISTORY Procedure Laterality Date NONE ALLERGIES Penicillins MEDICATIONS sertraline (ZOLOFT) 50 mg tablet Take 1 tablet by mouth once daily. (Patient not taking: Reported on 11/12/2021 ) FAMILY HISTORY Problem Relation Age of Onset Alcohol/Drug Mother COPD Mother other (bipolar) Mother Alcohol/Drug Father Alcohol/Drug Sister drug overdose Bipolar disorder Sister Cancer Paternal Aunt lung Social History Tobacco Use Smoking status: Every Day Types: Cigarettes Start date: 10/23/2014 Smokeless tobacco: Never Tobacco comments: 1-2 every other day Substance Use Topics Alcohol use: Yes Comment: rarely Drug use: Yes Frequency: 14.0 times per week Types: Marijuana Comment: quit 4 days ago Review of Systems Constitutional: Negative for chills and fever. HENT: Negative for congestion and sore throat. Respiratory: Negative for cough and shortness of breath. Gastrointestinal: Positive for abdominal pain. Negative for diarrhea and vomiting. Genitourinary: Positive for dysuria, flank pain, hematuria and urgency. Objective BP 122/78 Pulse 60 Temp 37 ?C (98.6 ?F) (Tympanic) Resp 16 Wt 60.5 kg (133 lb 6.1 oz) SpO2 96% BMI 19.70 kg/m? Physical Exam Vitals and nursing note reviewed. Constitutional: General: He is not in acute distress. Appearance: Normal appearance. He is not toxic-appearing. HENT: Nose: Nose normal. Mouth/Throat: Mouth: Mucous membranes are moist. Eyes: Conjunctiva/sclera: Conjunctivae normal. Cardiovascular: Rate and Rhythm: Normal rate and regular rhythm. Pulmonary: Effort: Pulmonary effort is normal. Breath sounds: Normal breath sounds. Abdominal: General: Abdomen is flat. Palpations: Abdomen is soft. Tenderness: There is no abdominal tenderness. There is no right CVA tenderness or left CVA tenderness. Skin: General: Skin is warm and dry. Neurological: Mental Status: He is alert. Assessment and Plan ASSESSMENT/PLAN: 1. Urinary frequency - ICD9: 788.41, ICD10: R35.0 (primary diagnosis) acute - UA positive for hematuria - Send urine for culture - Patient education for prevention given - UA DIP, URINE (POC) - URINE CULTURE 2. Microscopic hematuria - ICD9: 599.72, ICD10: R31.29 -Patient had left-sided flank pain and left lower quadrant abdominal pain. Current pain 1/10. Tenderness on exam. + blood in urine. Suspect possible ureteral stone. -At this time in the evening, unable to get kidney ultrasound. Will send urine for culture and refer to urology. -Recommend drinking plenty of fluids. If pain becomes severe, vomiting, inability to urinate, fevers, needs to be seen in ER. He understands. -We were able to schedule the patient an appointment with urology tomorrow. - CONSULT TO UROLOGY 3. Flank pain - ICD9: 789.09, ICD10: R10.9 -See above. Current pain 1/10. Advised if pain worsens, go to ER. -Has an appointment with urology tomorrow. Diagnosis and treatment plan were discussed and questions were answered to the patient's satisfaction. Pt acknowledged understanding of concepts and follow up plan. Specific signs and symptoms that would indicate the need for higher level of care were discussed in detail warranting prompt ER evaluation. ARIN Galan Allergies As of Date: 01/04/2024 Noted Allergy Reaction PENICILLINS 03/05/2007 Date Reviewed: 01/04/2024 Reviewed by: Berenice Sung LPN - Fully Assessed Reason for Visit: Urinary Frequency [1086] Cmt: Frequency, urgency and lower abdominal pain x 2 days (more content not included)... Normal [facility] UA DIP, URINE (POC)on 2023 BILIRUBIN UA (POCT) Negative Negative [facility] CLARITY UA (POCT) Clear [facility] COLOR UA (POCT) Yellow [facility] GLUCOSE UA (POCT) Negative Negative mg/dL [facility] Hemoglobin Ql (U) Moderate Abnormal Negative [facility] KETONE UA (POCT) Negative Negative mg/dL [facility] LEUKOCYTES UA (POCT) Negative Negative [facility] NITRITE UA (POCT) Negative Negative [facility] PH UA (POCT) 7.0 4.5 - 8.0 [facility] Protein Ql (U) Negative Negative mg/dL [facility] beds at [facility] SPECIFIC GRAVITY UA (POCT) 1.025 1.005 - 1.030 [facility] UROBILINOGEN UA (POCT) 1.0 E.U./dL Normal E.U./dL [facility] XR Wrist - left PA and Later al and Obliqueon 11-12-2021 * * *Final Report* * * DATE OF EXAM: Nov 12 2021 6:43PM WOX 5270 - XR WRIST 3V PA/LAT/OBL LT / PROCEDURE REASON: Left wrist pain * * * * Physician Interpretation * * * * Indication: Left wrist pain Comparison: None 3 views of the left wrist are obtained. There is normal architecture and mineralization of the bones. There is no acute fracture or dislocation. Joint spaces are maintained. Impression: 1. No acute fracture or dislocation. Program Evaluation Consultant: THOMAS Transcribe Date/Time: Nov 12 2021 6:48P Dictated by : TOMI HAMMOND MD This examination was interpreted and the report reviewed and electronically signed by: TOMI HAMMOND MD on Nov 12 2021 6:49PM [facility] DIVISION OF RADIOLOGY Provider, [facility] - 11/12/2021 * * *Final Report* * * DATE OF EXAM: Nov 12 2021 6:43PM WOX 5270 - XR WRIST 3V PA/LAT/OBL LT / PROCEDURE REASON: Left wrist pain * * * * Physician Interpretation * * * * Indication: Left wrist pain Comparison: None 3 views of the left wrist are obtained. There is normal architecture and mineralization of the bones. There is no acute fracture or dislocation. Joint spaces are maintained. Impression: 1. No acute fracture or dislocation. Program Evaluation Consultant: PSCB Transcribe Date/Time: Nov 12 2021 6:48P Dictated by : TOMI HAMMOND MD This examination was interpreted and the report reviewed and electronically signed by: TOMI HAMMOND MD on Nov 12 2021 6:49PM EST [facility] Radiology Study observation (narrative) [facility] XR Wrist - left PA and Later al and ObliqueOrdered By: Ccf Provider on 11-12-2021 [facility] Vital Signs Date Time Vital Sign Value Performing Clinician Faci lity 08-02-2024 10:15-0400 Body mass index (BMI) [Ratio] 19.42 kg/m2 Juana Stevenson APRN.[employer]UIT [employer]KER Work Phone: [facility] 08-02-2024 10:15-0400 Body temperature 97.11 [degF] Juana Stevenson [employer] ARCHITECT.[employer]UIT [employer]KER Work Phone: [facility] 08-02-2024 10:15-0400 Body weight 58.8 kg Juana Stevenson [employer] ARCHITECT.[employer]ER Work Phone: [facility] 08-02-2024 10:15-0400 Diastolic blood pressure 73 mm[Hg] Juana Stevenson [employer] ARCHITECT.[employer]KER Work Phone: [facility] 08-02-2024 10:15-0400 Heart rate 56 /min Juana Stevenson [employer] ARCHITECT.[employer]UIT [employer]KER Work Phone: [facility] 08-02-2024 10:15-0400 Respiratory rate 16 /min Juana Stevenson [employer] ARCHITECT.FRUIT [employer]KER Work Phone: [facility] 08-02-2024 10:15-0400 SaO2% (BldA) [Mass fraction] 98 % Juana Stevenson [employer] ARCHITECT.FRUIT [employer]KER Work Phone: [facility] 08-02-2024 10:15-0400 Systolic blood pressure 123 mm[Hg] Juana Stevenson [employer] ARCHITECT.[employer]UIT [employer]KER Work Phone: [facility] 01-05-2024 11:15-0400 Body height 174 cm Nany Carlos PA-C Work Phone: [facility] 01-05-2024 11:15-0400 Body temperature 98.1 [degF] Nany Carlos PA-C Work Phone: [facility] 01-05-2024 11:15-0400 Body weight 60.06 kg Nany Carlos PA-C Work Phone: [facility] 01-05-2024 11:15-0400 Diastolic blood pressure 76 mm[Hg] Nany Carlos PA-C Work Phone: [facility] 01-05-2024 11:15-0400 Heart rate 64 /min Nany Carlos PA-C Work Phone: [facility] 01-05-2024 11:15-0400 Respiratory rate 12 /min Nany Carlos PA-C Work Phone: [facility] 01-05-2024 11:15-0400 SaO2% (BldA) [Mass fraction] 97 % Nany Carlos PA-C Work Phone: [facility] 01-05-2024 11:15-0400 Systolic blood pressure 108 mm[Hg] Nany Carlos PA-C Work Phone: [facility] 01-04-2024 16:56-0400 Body temperature 98.6 [degF] Krislyn Aberegg PA Work Phone: [facility] 01-04-2024 16:56-0400 Body weight 60.5 kg Krislyn Aberegg PA Work Phone: [facility] 01-04-2024 16:56-0400 Diastolic blood pressure 78 mm[Hg] Krislyn Aberegg PA Work Phone: [facility] 01-04-2024 16:56-0400 Heart rate 60 /min Krislyn Aberegg PA Work Phone: [facility] 01-04-2024 16:56-0400 Respiratory rate 16 /min Krislyn Aberegg PA Work Phone: [facility] 01-04-2024 16:56-0400 SaO2% (BldA) [Mass fraction] 96 % Toy HINKLE Work Phone: [facility] 01-04-2024 16:56-0400 Systolic blood pressure 122 mm[Hg] Toy HINKLE Work Phone: [facility] Encounters Encounter Date Encounter Type Care Provider Facility Start: 08-03-2024 End: 08-03-2024 Telephone encounter Elliott Paulino MD Work Phone: [facility] Comment on above: Results Start: 08-02-2024 End: 08-02-2024 ambulatory [facility] Facility:[facility] Start: 08-02-2024 End: 08-02-2024 Office outpatient visit 15 minutes Juana Stevenson APRN.CNP Work Phone: [facility] Comment on above: Screening for STD (s exually transmitted disease) (Primary Dx) Start: 01-05-2024 End: 01-05-2024 Patient encounter procedure Nany Carlos PA-C Work Phone: Urology Comment on above: Microscopic hematuri a (Primary Dx); Urinary frequency; Screening for genitourinary condition Start: 01-05-2024 End: 01-05-2024 ambulatory NANY CARLOS Facility:[facility] Start: 01-04-2024 End: 01-04-2024 [facility] Facility:[facility] Start: 01-04-2024 End: 01-04-2024 Patient encounter procedure Toy HINKLE Work Phone: [facility] Comment on above: Urinary frequency (P rimary Dx); Microscopic hematuria; Flank pain Start: 11-12-2021 End: 11-12-2021 Subsequent hospital visit by physician Ronnell [facility] Jenny Work Phone: Radiology Comment on above: Left wrist pain [M25 .532] Procedures Date Procedure Procedure Detail Performing Clinician Start: 01-05-2024 Urnls dip stick/tabl et reagent auto microscopy Nany Carlos PA-C Work Phone: Start: 01-04-2024 Urnls dip stick/tabl et rgnt auto w/o microscopy Roberta Rainey [employer] ARCHITECT.DUNCAN Work Phone: Start: 11-12-2021 Radex wrist complete minimum 3 views Roberta Rainey [employer] ARCHITECT.DUNCAN Work Phone: Plan of Treatment Date Care Activity Detail Author Start: 06-12-2024 Covid-19 Vaccine ( season) Covid-19 Vaccine () [facility] Start: 06-12-2024 Influenza vaccination Influenza Vacc ine (#1) [facility] Start: 01-26-2024 End: 04-26-2024 Urinalysis complete panel - Urine URINALYSIS, WITH MICROSCOPIC Lab Routine Microscopic hematuria Expected: 01/26/2024 (Approximate), Expires: 04/26/2024 [facility] Work Phone: Comment on above: Expected: 01/26/2024 (Approximate), Expires: 04/26/2024 Start: 01-05-2024 End: 04-05-2024 Urinalysis complete panel - Urine URINALYSIS, WITH MICROSCOPIC Lab Routine Microscopic hematuria Expected: 01/05/2024 (Approximate), Expires: 04/05/2024 [facility] Work Phone: Comment on above: Expected: 01/05/2024 (Approximate), Expires: 04/05/2024 Start: 06-12-2023 Covid-19 Vaccine ( season) Covid-19 Vaccine ( season) [facility] Start: 06-12-2023 Influenza vaccination Influenza Vacc ine (#1) [facility] Start: 01-13-2022 Urine microalbumin profile DTaP,Tdap,Td Vaccine (8 - Td or Tdap) [facility] Start: 2016 Hepatitis C screening Hepatitis C Sc reening [facility] Start: 2016 HIV screening HIV Screening [facility] Start: 2012 Peds To Adult Transition Annual Assessment Peds To Adult Transition Annual Assessment [facility] Start: 2010 Peds To Adult Transition Initial Discussion Peds To Adult Transition Initial Discussion [facility] Start: 2004 Pneumococcal vaccination Pneumococcal Vaccine (1 of 2 - PCV) [facility] Bacteria identified in Urine by Culture URINE CULTURE Microbiology Routine Urinary frequency Ordered: 01/04/2024 [facility] Work Phone: Comment on above: Ordered: 01/04/2024 Chlamydia trachomatis+Neisseria gonorrhoeae DNA [Presence] in Unspecified specimen by MAME with probe detection GONORRHEA/CHLAMYDIA NAAT Lab Routine Screening for STD (sexually transmitted disease) Ordered: 08/02/2024 [facility] Work Phone: Comment on above: Ordered: 08/02/2024 POST VOID RESIDUAL POST VOID RES IDUAL Procedures Routine Microscopic hematuria Screening for genitourinary condition Urinary frequency Ordered: 01/05/2024 [facility] Work Phone: Comment on above: Ordered: 01/05/2024 US Kidney - bilatera l and Urinary bladder US KIDNEY/BLADDER Radiology Routine Microscopic hematuria Ordered: 01/05/2024 [facility] Work Phone: Comment on above: [facility]: [facility] Immunization Date Immunization Notes Care Provider Estuardo rucker 02-16-2015 human papilloma viru s vaccine, quadrivalent Toy Horne PA Work Phone: [facility] 02-16-2015 meningococcal polysaccharide (groups A, C, Y and W-135) diphtheria toxoid conjugate vaccine (MCV4P) Toy HINKLE Work Phone: [facility] 12-09-2013 human papilloma viru s vaccine, quadrivalent Chaunceyislyn Aberegg PA Work Phone: [facility] 08-26-2012 human papilloma viru s vaccine, quadrivalent Chaunceyislyn Abricha PA Work Phone: [facility] 08-26-2012 influenza virus vacc ine, unspecified formulation Toy HINKLE Work Phone: [facility] 08-26-2012 varicella virus vaccine Yonathan HINKLE Work Phone: [facility] 01-14-2012 diphtheria, tetanus toxoids and acellular pertussis vaccine, 5 pertussis antigens Krislyn Aberegg PA Work Phone: [facility] Work Phone: 01-14-2012 Meningococcal, MCV4, unspecified conjugate formulation(groups A, C, Y and W-135) Krislyn Aberegg PA Work Phone: [facility] 01-14-2012 tetanus toxoid, redu rd diphtheria toxoid, and acellular pertussis vaccine, adsorbed Krislyn Aberegg PA Work Phone: [facility] 01-14-2012 varicella virus vaccine Yonathan evelio Aberegg PA Work Phone: [facility] 11-06-2009 novel influenza-H1N1 -09, all formulations Krislyn Aberegg PA Work Phone: [facility] Work Phone: 09-11-2003 diphtheria, tetanus toxoids and acellular pertussis vaccine, 5 pertussis antigens Krislyn Aberegg PA Work Phone: [facility] Work Phone: 09-11-2003 measles, mumps and rubella virus vaccine Krislyn Aberegg PA Work Phone: [facility] 09-11-2003 poliovirus vaccine, inactivated Krislyn Aberegg PA Work Phone: [facility] 11-04-2002 diphtheria, tetanus toxoids and acellular pertussis vaccine, 5 pertussis antigens Krislyn Aberegg PA Work Phone: [facility] Work Phone: 04-17-2000 diphtheria, tetanus toxoids and acellular pertussis vaccine, 5 pertussis antigens Krislyn Aberegg PA Work Phone: [facility] Work Phone: 04-17-2000 haemophilus influenz ae type b vaccine, HbOC conjugate Krislyn Aberegg PA Work Phone: [facility] Work Phone: 04-17-2000 hepatitis B vaccine, pediatric or pediatric/adolescent dosage Krislyn Aberegg PA Work Phone: [facility] Work Phone: 04-17-2000 measles, mumps and rubella virus vaccine Krislyn Aberegg PA Work Phone: [facility] 04-17-2000 poliovirus vaccine, inactivated Krislyn Aberegg PA Work Phone: [facility] 07-05-1999 diphtheria, tetanus toxoids and acellular pertussis vaccine, 5 pertussis antigens Krislyn Aberegg PA Work Phone: [facility] Work Phone: 07-05-1999 haemophilus influenz ae type b vaccine, HbOC conjugate Krislyn Aberegg PA Work Phone: [facility] Work Phone: 07-05-1999 poliovirus vaccine, inactivated Krislyn Aberegg PA Work Phone: [facility] 03-25-1999 diphtheria, tetanus toxoids and acellular pertussis vaccine, 5 pertussis antigens Krislyn Aberegg PA Work Phone: [facility] Work Phone: 03-25-1999 haemophilus influenz ae type b vaccine, HbOC conjugate Krislyn Aberegg PA Work Phone: [facility] Work Phone: 03-25-1999 hepatitis B vaccine, pediatric or pediatric/adolescent dosage Krislyn Aberegg PA Work Phone: [facility] 03-25-1999 poliovirus vaccine, inactivated Krislyn Aberegg PA Work Phone: [facility] 1998 hepatitis B vaccine, pediatric or pediatric/adolescent dosage Krislyn Aberegg PA Work Phone: [facility] Payers Date Payer Category Payer Medicaid [id number] 2021 Medicaid [id number] Social History Date Type Detail Facility Start: 10-23-2014 End: 08-02-2024 Tobacco smoking status NHIS Smokes tobacco daily [facility] Start: 10-23-2014 History of tobacco use Cigarette Smo ker [facility] Start: 12-21-2018 End: 08-02-2024 Tobacco use and exposure Smokeless tobacco non-user [facility] Start: 11-12-2021 End: 01-04-2024 Alcohol intake Current drinker of alcohol (finding) [facility] Start: 01-04-2024 End: 01-05-2024 History of Social function [facility] Start: 01-04-2024 End: 01-05-2024 Tobacco use panel [facility] Adult Depression Scr eening Assessment 4 [facility] Start: 12-21-2018 End: 01-05-2024 Tobacco Comment 1-2 every other day [facility] Start: 12-15-2018 Alcohol Comment rarely [facility] Start: 1998 Sex Assigned At Not on file C [facility] Start: 01-05-2024 End: 08-02-2024 Alcohol intake Ex-drinker (finding) [facility] Clinical Notes 01-04-2024 to 08-03-2024 Telephone Encounter - Mario Thomas MA - 08/03/2024 7:26 AM EDTTelephone Encounter - Mario Thomas MA - 08/03/2024 7:26 AM EDTTelephone Encounter - Mario Thomas MA - 08/03/2024 7:26 AM EDT Note Date & Type Note Facility 08-03-2024 Telephone encounter Note Patient given results and verbalized understanding of instructions given. Mario Thomas MA [facility] 08-03-2024 Telephone encounter Note ----- Message from Alhaji Zamarripa APRN.[employer]UIT [employer]KER sent at 08/03/2024 7:04 AM EDT ----- Please inform patient that her gonorrhea and Chlamydia test were negative. [facility] 08-03-2024 Miscellaneous Notes Patient given results and verbalized understanding of instructions given. Mario Thomas MA ----- Message from Alhaji Zamarripa APRN.FRUIT BAR MAKER sent at 08/03/2024 7:04 AM EDT ----- Please inform patient that her gonorrhea and Chlamydia test were negative. documented in this encounter [facility] 08-02-2024 Note HNO ID: [id number] Author: JUANA STEVENSON APRN.CNP Service: ? Author Type: Nurse Practitioner Type: Progress Notes Filed: 08/02/2024 17:43 Note Text: Subjective HPI Nontoxic-appearing male presents urgent care requesting STD testing. States recently had a new sexual partner. Concerned about possible STDs. No symptoms. Patient denies any history of STDs in the past. Had unprotected vaginal intercourse. Denies any penile drainage testicular pain scrotal swelling rashes. Past medical history prescription medications allergies reviewed. .Patient presents with: STD: No sx, wants checked PAST MEDICAL HISTORY Diagnosis Date ADHD (attention deficit hyperactivity disorder) Anxiety Broken finger 2014 pinky right hand Broken wrist 2005 Pt broke right wrist Depression Marijuana smoker Tobacco use disorder PAST SURGICAL HISTORY Procedure Laterality Date NONE ALLERGIES Penicillins MEDICATIONS No prescriptions on file. FAMILY HISTORY Problem Relation Age of Onset Alcohol/Drug Mother COPD Mother other (bipolar) Mother Alcohol/Drug Father Alcohol/Drug Sister drug overdose Bipolar disorder Sister Cancer Paternal Aunt lung Social History Tobacco Use Smoking status: Every Day Current packs/day: 1.00 Average packs/day: 1 pack/day for 9.8 years (9.8 ttl pk-yrs) Types: Cigarettes Start date: 10/23/2014 Smokeless tobacco: Never Tobacco comments: 1-2 every other day Vaping Use Vaping status: Some Days Substances: Nicotine, THC, CBD, Flavoring Devices: Disposable Substance Use Topics Alcohol use: Not Currently Comment: rarely Drug use: Yes Frequency: 14.0 times per week Types: Marijuana BP 123/73 Pulse (!) 56 Temp 36.2 ?C (97.1 ?F) Resp 16 Wt 58.8 kg (129 lb 10.1 oz) SpO2 98% BMI 19.42 kg/m? Review of Systems Constitutional: Negative for chills, fever and malaise/fatigue. Cardiovascular: Negative for chest pain. Gastrointestinal: Negative for abdominal pain, constipation, diarrhea, nausea and vomiting. Genitourinary: Negative for dysuria, flank pain, frequency, hematuria and urgency. Musculoskeletal: Negative for myalgias. Objective Physical Exam Vitals and nursing note reviewed. Constitutional: General: He is not in acute distress. Appearance: He is not diaphoretic. HENT: Head: Jaw: No trismus. Right Ear: Hearing and ear canal normal. No decreased hearing noted. No drainage, swelling or tenderness. Tympanic membrane is not perforated, erythematous or bulging. Left Ear: Hearing, tympanic membrane and ear canal normal. No decreased hearing noted. No drainage, swelling or tenderness. Tympanic membrane is not perforated, erythematous or bulging. Mouth/Throat: Pharynx: Uvula midline. No oropharyngeal exudate, posterior oropharyngeal erythema or uvula swelling. Tonsils: No tonsillar abscesses. Eyes: General: Right eye: No discharge. Left eye: No discharge. Conjunctiva/sclera: Conjunctivae normal. Pupils: Pupils are equal, round, and reactive to light. Cardiovascular: Rate and Rhythm: Normal rate and regular rhythm. Heart sounds: Normal heart sounds. Pulmonary: Effort: Pulmonary effort is normal. No respiratory distress. Breath sounds: Normal breath sounds. Chest: Chest wall: No tenderness. Abdominal: General: Bowel sounds are normal. There is no distension. Palpations: Abdomen is soft. Abdomen is not rigid. Tenderness: There is no abdominal tenderness. There is no guarding or rebound. Negative signs include Bashir's sign and McBurney's sign. Genitourinary: Comments: Deferred exam Musculoskeletal: General: No tenderness. Lymphadenopathy: Head: Right side of head: No submental, submandibular, tonsillar, preauricular, posterior auricular or occipital adenopathy. Left side of head: No submental, submandibular, tonsillar, preauricular, posterior auricular or occipital adenopathy. Cervical: Right cervical: No superficial or posterior cervical adenopathy. Left cervical: No superficial or posterior cervical adenopathy. Skin: General: Skin is warm and dry. Findings: No rash. Neurological: Mental Status: He is alert and oriented to person, place, and time. ASSESSMENT/PLAN: 1. Screening for STD (sexually transmitted disease) - ICD9: V74.5, ICD10: Z11.3 - GONORRHEA/CHLAMYDIA NAAT Gonorrhea chlamydia test via urine dip. Treat accordingly test results. Since its only been 48 hours since new sexual partner this test will not be sensitive to any recent exposure. Patient was educated on supportive therapies. Patient will follow up with primary care provider as needed. Patient was instructed to immediately proceed to emergency room for any new, worsening, or symptoms lasting longer than anticipated. The patient's clinical presentation is otherwise unremarkable at this time. Based on exam and clinical finding, the patient is stable for discharge. Plan of care was di (more content not included)... [facility] 08-02-2024 History of Presen t illness Narrative Subjective HPI Nontoxic-appearing male presents urgent care requesting STD testing. States recently had a new sexual partner. Concerned about possible STDs. No symptoms. Patient denies any history of STDs in the past. Had unprotected vaginal intercourse. Denies any penile drainage testicular pain scrotal swelling rashes. Past medical history prescription medications allergies reviewed. .Patient presents with: STD: No sx, wants checked PAST MEDICAL HISTORY Diagnosis Date ADHD (attention deficit hyperactivity disorder) Anxiety Broken finger 2014 pinky right hand Broken wrist 2005 Pt broke right wrist Depression Marijuana smoker Tobacco use disorder PAST SURGICAL HISTORY Procedure Laterality Date NONE ALLERGIES Penicillins MEDICATIONS No prescriptions on file. FAMILY HISTORY Problem Relation Age of Onset Alcohol/Drug Mother COPD Mother other (bipolar) Mother Alcohol/Drug Father Alcohol/Drug Sister drug overdose Bipolar disorder Sister Cancer Paternal Aunt lung Social History Tobacco Use Smoking status: Every Day Current packs/day: 1.00 Average packs/day: 1 pack/day for 9.8 years (9.8 ttl pk-yrs) Types: Cigarettes Start date: 10/23/2014 Smokeless tobacco: Never Tobacco comments: 1-2 every other day Vaping Use Vaping status: Some Days Substances: Nicotine, THC, CBD, Flavoring Devices: Disposable Substance Use Topics Alcohol use: Not Currently Comment: rarely Drug use: Yes Frequency: 14.0 times per week Types: Marijuana BP 123/73 Pulse (!) 56 Temp 36.2 C (97.1 F) Resp 16 Wt 58.8 kg (129 lb 10.1 oz) SpO2 98% BMI 19.42 kg/m Review of Systems Constitutional: Negative for chills, fever and malaise/fatigue. Cardiovascular: Negative for chest pain. Gastrointestinal: Negative for abdominal pain, constipation, diarrhea, nausea and vomiting. Genitourinary: Negative for dysuria, flank pain, frequency, hematuria and urgency. Musculoskeletal: Negative for myalgias. Objective Physical Exam Vitals and nursing note reviewed. Constitutional: General: He is not in acute distress. Appearance: He is not diaphoretic. HENT: Head: Jaw: No trismus. Right Ear: Hearing and ear canal normal. No decreased hearing noted. No drainage, swelling or tenderness. Tympanic membrane is not perforated, erythematous or bulging. Left Ear: Hearing, tympanic membrane and ear canal normal. No decreased hearing noted. No drainage, swelling or tenderness. Tympanic membrane is not perforated, erythematous or bulging. Mouth/Throat: Pharynx: Uvula midline. No oropharyngeal exudate, posterior oropharyngeal erythema or uvula swelling. Tonsils: No tonsillar abscesses. Eyes: General: Right eye: No discharge. Left eye: No discharge. Conjunctiva/sclera: Conjunctivae normal. Pupils: Pupils are equal, round, and reactive to light. Cardiovascular: Rate and Rhythm: Normal rate and regular rhythm. Heart sounds: Normal heart sounds. Pulmonary: Effort: Pulmonary effort is normal. No respiratory distress. Breath sounds: Normal breath sounds. Chest: Chest wall: No tenderness. Abdominal: General: Bowel sounds are normal. There is no distension. Palpations: Abdomen is soft. Abdomen is not rigid. Tenderness: There is no abdominal tenderness. There is no guarding or rebound. Negative signs include Bashir's sign and McBurney's sign. Genitourinary: Comments: Deferred exam Musculoskeletal: General: No tenderness. Lymphadenopathy: Head: Right side of head: No submental, submandibular, tonsillar, preauricular, posterior auricular or occipital adenopathy. Left side of head: No submental, submandibular, tonsillar, preauricular, posterior auricular or occipital adenopathy. Cervical: Right cervical: No superficial or posterior cervical adenopathy. Left cervical: No superficial or posterior cervical adenopathy. Skin: General: Skin is warm and dry. Findings: No rash. Neurological: Mental Status: He is alert and oriented to person, place, and time. ASSESSMENT/PLAN: 1. Screening for STD (sexually transmitted disease) - ICD9: V74.5, ICD10: Z11.3 - GONORRHEA/CHLAMYDIA NAAT Gonorrhea chlamydia test via urine dip. Treat accordingly test results. Since its only been 48 hours since new sexual partner this test will not be sensitive to any recent exposure. Patient was educated on supportive therapies. Patient will follow up with primary care provider as needed. Patient was instructed to immediately proceed to emergency room for any new, worsening, or symptoms lasting longer than anticipated. The patient's clinical presentation is otherwise unremarkable at this time. Based on exam and clinical finding, the patient is stable for discharge. Plan of care was discussed with patient. Patient verbalizes understanding and agrees to plan of care. This note was generated using [employer] software. It may contain errors in wording, punctuation, or spelling. Juana Stevenson APRN.DUNCAN documented in this encounter [facility] 01-05-2024 Note HNO ID: [id number] Author: NANY CARLOS PA-C Service: ? Author Type: Physician Medical Records Technician Type: Progress Notes Filed: 01/05/2024 18:49 Note Text: [facility] NEW PATIENT CLINIC NOTE SERVICE DATE: 01/05/2024 SERVICE TIME: 11:44 AM NAME: Samir Allison CHIEF COMPLAINT: hematuria HISTORY OF PRESENT ILLNESS: Samir Allison is a 23 year old male presenting as an New Patient for hematuria The patient reports having abdominal pain and pubic pain and was seen at [facility] and found to have to have blood on UA Dicussed hematuria and he denies any gross hematuria so will get 3 UA with Microscopic if all 3 have RBC's will need a full hematuria work-up Urine culture is pending No renal imaging , and will need Renal US LUTS: DYSURIA: no URGENCY: No FREQUENCY:6 per day NOCTURIA: 0 per night STRAINING TO VOID: No EMPTIES COMPLETELY: Yes UTI: No GROSS HEMATURIA: no UA DIPSTICK POSITIVE ONLY: yes Other symptoms: LABS: No results found for: TESTOST No results found for: TESTFREE No results found for: PSA No results found for: HCT No results found for: PSA Creatinine Date Value Ref Range Status 12/21/2018 0.84 0.73 - 1.22 mg/dL Final MEDICATIONS: sertraline (ZOLOFT) 50 mg tablet Take 1 tablet by mouth once daily. PAST MEDICAL HISTORY: PAST MEDICAL HISTORY Diagnosis Date ADHD (attention deficit hyperactivity disorder) Anxiety Broken finger 2014 pinky right hand Broken wrist 2005 Pt broke right wrist Depression Marijuana smoker Tobacco use disorder PAST SURGICAL HISTORY: PAST SURGICAL HISTORY Procedure Laterality Date NONE FAMILY HISTORY: FAMILY HISTORY Problem Relation Age of Onset Alcohol/Drug Mother COPD Mother other (bipolar) Mother Alcohol/Drug Father Alcohol/Drug Sister drug overdose Bipolar disorder Sister Cancer Paternal Aunt lung SOCIAL HISTORY: Social Connections: Not on file REVIEW OF SYSTEMS: GENERAL: No fever, chills, weight loss, or fatigue. ENMT: Negative CARDIOVASCULAR:NO CHEST PAIN, PALPITATIONS, ANKLE EDEMA RESPIRATORY: No chronic cough, wheezing, dyspnea, hemoptysis. GENITOURINARY: SEE HPI MUSCULOSKELETAL:NO CHRONIC BACK PAIN, ARTHRITIS, CHRONIC NECK PAIN SKIN: NO VARICOSE VEINS, RASH, ABNORMAL ITCHING HEME/LYMPH/IMMUNE:Negative for prolonged bleeding, bruising easily or swollen nodes NEUROLOGICAL: NO HEADACHES, NUMBNESS, SEIZURES, STROKE DIABETES: no All other systems reviewed and are negative PHYSICAL EXAMINATION: Blood pressure 108/76, pulse 64, temperature 36.7 ?C (98.1 ?F), temperature source Temporal, resp. rate 12, height 174 cm (5' 8.5), weight 60.1 kg (132 lb 6.4 oz), SpO2 97%. GENERAL: WNL nutrition, no deformities, healthy appearing NEURO: Awake, alert and oriented x 3 and Normal gait PSYCH: No signs of depression, anxiety, or agitation ENMT (Ear, Nose, Mouth, Throat): No masses, adenopathy, icterus. Thyroid nonpalpable RESP: NL effort, no retractions or purse-lip breathing. CV: No extremity swelling, varices, edema, pallor, erythema GASTROINTESTINAL: Soft, nontender, nondistended, no masses. HERNIAS: None SKIN: No rash, lesions No palpable lymphadenopathy MUSCULOSKELETAL: Extremities normal. No deformities, edema, clubbing or skin discoloration. PROBLEM LIST REVIEW: Yes LABS: Results for orders placed or performed in visit on 01/04/24 UA DIP, URINE (POC) Result Value Ref Range GLUCOSE UA (POCT) Negative Negative mg/dL BILIRUBIN UA (POCT) Negative Negative KETONE UA (POCT) Negative Negative mg/dL SPECIFIC GRAVITY UA (POCT) 1.025 1.005 - 1.030 HEMOGLOBIN/BLOOD UA (POCT) Moderate (A) Negative PH UA (POCT) 7.0 4.5 - 8.0 PROTEIN UA (POCT) Negative Negative mg/dL UROBILINOGEN UA (POCT) 1.0 Normal E.U./dL NITRITE UA (POCT) Negative Negative LEUKOCYTES UA (POCT) Negative Negative COLOR UA (POCT) Yellow CLARITY UA (POCT) Clear Urine Microscopy x 3 - pending Urine Culture: Pending PROCEDURES: PVR: 9 ml IMAGING: Renal US - pending IMPRESSION/PLAN: 23 year old male with 1. Screening for genitourinary condition - ICD9: V81.6, ICD10: Z13.89 (primary diagnosis) 2. Microscopic hematuria - ICD9: 599.72, ICD10: R31.29 3. Urinary frequency - ICD9: 788.41, ICD10: R35.0 > Urine culture - pending > Renal US to check for kidney stones > follow-up after imaging final I spent a total of 30 minutes on the date of the service which included preparing to see the patient, face to face patient care, completing clinical documentation, obtaining and/or reviewing separately obtained history, performing a medically appropriate examination, counseling and educating the patient/family/caregiver, ordering medications, tests, or procedures, and care coordination. Nany Carlos MPAS, MT, PA-C [facility] 01-05-2024 History of Presen t illness Narrative Images from the original note were not included. [facility] NEW PATIENT CLINIC NOTE SERVICE DATE: 01/05/2024 SERVICE TIME: 11:44 AM NAME: Samir Allison CHIEF COMPLAINT: hematuria HISTORY OF PRESENT ILLNESS: Samir Allison is a 23 year old male presenting as an New Patient for hematuria The patient reports having abdominal pain and pubic pain and was seen at urgency care and found to have to have blood on UA Dicussed hematuria and he denies any gross hematuria so will get 3 UA with Microscopic if all 3 have RBC's will need a full hematuria work-up Urine culture is pending No renal imaging , and will need Renal US LUTS: DYSURIA: no URGENCY: No FREQUENCY:6 per day NOCTURIA: 0 per night STRAINING TO VOID: No EMPTIES COMPLETELY: Yes UTI: No GROSS HEMATURIA: no UA DIPSTICK POSITIVE ONLY: yes Other symptoms: LABS: No results found for: TESTOST No results found for: TESTFREE No results found for: PSA No results found for: HCT No results found for: PSA Creatinine Date Value Ref Range Status 12/21/2018 0.84 0.73 - 1.22 mg/dL Final MEDICATIONS: sertraline (ZOLOFT) 50 mg tablet Take 1 tablet by mouth once daily. PAST MEDICAL HISTORY: PAST MEDICAL HISTORY Diagnosis Date ADHD (attention deficit hyperactivity disorder) Anxiety Broken finger 2014 pinky right hand Broken wrist 2005 Pt broke right wrist Depression Marijuana smoker Tobacco use disorder PAST SURGICAL HISTORY: PAST SURGICAL HISTORY Procedure Laterality Date NONE FAMILY HISTORY: FAMILY HISTORY Problem Relation Age of Onset Alcohol/Drug Mother COPD Mother other (bipolar) Mother Alcohol/Drug Father Alcohol/Drug Sister drug overdose Bipolar disorder Sister Cancer Paternal Aunt lung SOCIAL HISTORY: Social Connections: Not on file REVIEW OF SYSTEMS: GENERAL: No fever, chills, weight loss, or fatigue. ENMT: Negative CARDIOVASCULAR:NO CHEST PAIN, PALPITATIONS, ANKLE EDEMA RESPIRATORY: No chronic cough, wheezing, dyspnea, hemoptysis. GENITOURINARY: SEE HPI MUSCULOSKELETAL:NO CHRONIC BACK PAIN, ARTHRITIS, CHRONIC NECK PAIN SKIN: NO VARICOSE VEINS, RASH, ABNORMAL ITCHING HEME/LYMPH/IMMUNE:Negative for prolonged bleeding, bruising easily or swollen nodes NEUROLOGICAL: NO HEADACHES, NUMBNESS, SEIZURES, STROKE DIABETES: no All other systems reviewed and are negative PHYSICAL EXAMINATION: Blood pressure 108/76, pulse 64, temperature 36.7 C (98.1 F), temperature source Temporal, resp. rate 12, height 174 cm (5' 8.5), weight 60.1 kg (132 lb 6.4 oz), SpO2 97%. GENERAL: WNL nutrition, no deformities, healthy appearing NEURO: Awake, alert and oriented x 3 and Normal gait PSYCH: No signs of depression, anxiety, or agitation ENMT (Ear, Nose, Mouth, Throat): No masses, adenopathy, icterus. Thyroid nonpalpable RESP: NL effort, no retractions or purse-lip breathing. CV: No extremity swelling, varices, edema, pallor, erythema GASTROINTESTINAL: Soft, nontender, nondistended, no masses. HERNIAS: None SKIN: No rash, lesions No palpable lymphadenopathy MUSCULOSKELETAL: Extremities normal. No deformities, edema, clubbing or skin discoloration. PROBLEM LIST REVIEW: Yes LABS: Results for orders placed or performed in visit on 01/04/24 UA DIP, URINE (POC) Result Value Ref Range GLUCOSE UA (POCT) Negative Negative mg/dL BILIRUBIN UA (POCT) Negative Negative KETONE UA (POCT) Negative Negative mg/dL SPECIFIC GRAVITY UA (POCT) 1.025 1.005 - 1.030 HEMOGLOBIN/BLOOD UA (POCT) Moderate (A) Negative PH UA (POCT) 7.0 4.5 - 8.0 PROTEIN UA (POCT) Negative Negative mg/dL UROBILINOGEN UA (POCT) 1.0 Normal E.U./dL NITRITE UA (POCT) Negative Negative LEUKOCYTES UA (POCT) Negative Negative COLOR UA (POCT) Yellow CLARITY UA (POCT) Clear Urine Microscopy x 3 - pending Urine Culture: Pending PROCEDURES: PVR: 9 ml IMAGING: Renal US - pending IMPRESSION/PLAN: 23 year old male with 1. Screening for genitourinary condition - ICD9: V81.6, ICD10: Z13.89 (primary diagnosis) 2. Microscopic hematuria - ICD9: 599.72, ICD10: R31.29 3. Urinary frequency - ICD9: 788.41, ICD10: R35.0 > Urine culture - pending > Renal US to check for kidney stones > follow-up after imaging final I spent a total of 30 minutes on the date of the service which included preparing to see the patient, face to face patient care, completing clinical documentation, obtaining and/or reviewing separately obtained history, performing a medically appropriate examination, counseling and educating the patient/family/caregiver, ordering medications, tests, or procedures, and care coordination. SARAH Loco MT, PA-C Verified name and date of . CC Post Void Residual HPI: Samir Allison is a 23 year old male. The patient is here now for an appointment with SARAH Loco MT, PA-COV. Procedure: Explained procedure to patient and verbalizes understanding. Performed a PVR. Patient urinated and instructed to empty bladder as much as possible just prior to having PVR done using bladder ultrasound scanner. Results of scan: x mL The patient tolerated the procedure well. Plan: Appointment with Nany. documented in this encounter [facility] 01-05-2024 Note HNO ID: [id number] Author: LEROY WILLSON LPN Service: ? Author Type: LICENSED NURSE Type: Progress Notes Filed: 01/05/2024 18:49 Note Text: Verified name and date of . CC Post Void Residual HPI: Samir Allison is a 23 year old male. The patient is here now for an appointment with SARAH Loco MT, PA-COV. Procedure: Explained procedure to patient and verbalizes understanding. Performed a PVR. Patient urinated and instructed to empty bladder as much as possible just prior to having PVR done using bladder ultrasound scanner. Results of scan: x mL The patient tolerated the procedure well. Plan: Appointment with Nany. [facility] 01-04-2024 Note HNO ID: [id number] Author: TOY HORNE PA Service: ? Author Type: Physician Medical Records Technician Type: Progress Notes Filed: 01/04/2024 17:18 Note Text: This note was created using NoteWriter. Subjective Samir Allison is a 23 year old male. HPI 23-year-old male presents for left lower abdominal pain, urinary urgency x 3 days. Patient states he started getting left-sided flank pain radiating towards his left lower abdomen over the past couple of days. He states the pain is now in his lower groin/bladder area. Pain is a 1/10. States it is a dull ache currently. Denies any nausea, vomiting, back pain. Has not noticed any blood in his urine. He states he feels the urge to urinate, but then only goes a small amount. He is still urinating. No burning with urination. No concern for STD. No penile discharge. No testicular pain. No history of kidney stones. PAST MEDICAL HISTORY Diagnosis Date ADHD (attention deficit hyperactivity disorder) Anxiety Broken finger 2014 pinky right hand Broken wrist 2005 Pt broke right wrist Depression Marijuana smoker PAST SURGICAL HISTORY Procedure Laterality Date NONE ALLERGIES Penicillins MEDICATIONS sertraline (ZOLOFT) 50 mg tablet Take 1 tablet by mouth once daily. (Patient not taking: Reported on 11/12/2021 ) FAMILY HISTORY Problem Relation Age of Onset Alcohol/Drug Mother COPD Mother other (bipolar) Mother Alcohol/Drug Father Alcohol/Drug Sister drug overdose Bipolar disorder Sister Cancer Paternal Aunt lung Social History Tobacco Use Smoking status: Every Day Types: Cigarettes Start date: 10/23/2014 Smokeless tobacco: Never Tobacco comments: 1-2 every other day Substance Use Topics Alcohol use: Yes Comment: rarely Drug use: Yes Frequency: 14.0 times per week Types: Marijuana Comment: quit 4 days ago Review of Systems Constitutional: Negative for chills and fever. HENT: Negative for congestion and sore throat. Respiratory: Negative for cough and shortness of breath. Gastrointestinal: Positive for abdominal pain. Negative for diarrhea and vomiting. Genitourinary: Positive for dysuria, flank pain, hematuria and urgency. Objective BP 122/78 Pulse 60 Temp 37 ?C (98.6 ?F) (Tympanic) Resp 16 Wt 60.5 kg (133 lb 6.1 oz) SpO2 96% BMI 19.70 kg/m? Physical Exam Vitals and nursing note reviewed. Constitutional: General: He is not in acute distress. Appearance: Normal appearance. He is not toxic-appearing. HENT: Nose: Nose normal. Mouth/Throat: Mouth: Mucous membranes are moist. Eyes: Conjunctiva/sclera: Conjunctivae normal. Cardiovascular: Rate and Rhythm: Normal rate and regular rhythm. Pulmonary: Effort: Pulmonary effort is normal. Breath sounds: Normal breath sounds. Abdominal: General: Abdomen is flat. Palpations: Abdomen is soft. Tenderness: There is no abdominal tenderness. There is no right CVA tenderness or left CVA tenderness. Skin: General: Skin is warm and dry. Neurological: Mental Status: He is alert. Assessment and Plan ASSESSMENT/PLAN: 1. Urinary frequency - ICD9: 788.41, ICD10: R35.0 (primary diagnosis) acute - UA positive for hematuria - Send urine for culture - Patient education for prevention given - UA DIP, URINE (POC) - URINE CULTURE 2. Microscopic hematuria - ICD9: 599.72, ICD10: R31.29 -Patient had left-sided flank pain and left lower quadrant abdominal pain. Current pain 1/10. Tenderness on exam. + blood in urine. Suspect possible ureteral stone. -At this time in the evening, unable to get kidney ultrasound. Will send urine for culture and refer to urology. -Recommend drinking plenty of fluids. If pain becomes severe, vomiting, inability to urinate, fevers, needs to be seen in ER. He understands. -We were able to schedule the patient an appointment with urology tomorrow. - CONSULT TO UROLOGY 3. Flank pain - ICD9: 789.09, ICD10: R10.9 -See above. Current pain 1/10. Advised if pain worsens, go to ER. -Has an appointment with urology tomorrow. Diagnosis and treatment plan were discussed and questions were answered to the patient's satisfaction. Pt acknowledged understanding of concepts and follow up plan. Specific signs and symptoms that would indicate the need for higher level of care were discussed in detail warranting prompt ER evaluation. ARIN Galan [facility] 01-04-2024 History of Presen t illness Narrative This note was created using [employer]. Subjective Samir Allison is a 23 year old male. HPI 23-year-old male presents for left lower abdominal pain, urinary urgency x 3 days. Patient states he started getting left-sided flank pain radiating towards his left lower abdomen over the past couple of days. He states the pain is now in his lower groin/bladder area. Pain is a 1/10. States it is a dull ache currently. Denies any nausea, vomiting, back pain. Has not noticed any blood in his urine. He states he feels the urge to urinate, but then only goes a small amount. He is still urinating. No burning with urination. No concern for STD. No penile discharge. No testicular pain. No history of kidney stones. PAST MEDICAL HISTORY Diagnosis Date ADHD (attention deficit hyperactivity disorder) Anxiety Broken finger 2014 pinky right hand Broken wrist 2005 Pt broke right wrist Depression Marijuana smoker PAST SURGICAL HISTORY Procedure Laterality Date NONE ALLERGIES Penicillins MEDICATIONS sertraline (ZOLOFT) 50 mg tablet Take 1 tablet by mouth once daily. (Patient not taking: Reported on 11/12/2021 ) FAMILY HISTORY Problem Relation Age of Onset Alcohol/Drug Mother COPD Mother other (bipolar) Mother Alcohol/Drug Father Alcohol/Drug Sister drug overdose Bipolar disorder Sister Cancer Paternal Aunt lung Social History Tobacco Use Smoking status: Every Day Types: Cigarettes Start date: 10/23/2014 Smokeless tobacco: Never Tobacco comments: 1-2 every other day Substance Use Topics Alcohol use: Yes Comment: rarely Drug use: Yes Frequency: 14.0 times per week Types: Marijuana Comment: quit 4 days ago Review of Systems Constitutional: Negative for chills and fever. HENT: Negative for congestion and sore throat. Respiratory: Negative for cough and shortness of breath. Gastrointestinal: Positive for abdominal pain. Negative for diarrhea and vomiting. Genitourinary: Positive for dysuria, flank pain, hematuria and urgency. Objective BP 122/78 Pulse 60 Temp 37 C (98.6 F) (Tympanic) Resp 16 Wt 60.5 kg (133 lb 6.1 oz) SpO2 96% BMI 19.70 kg/m Physical Exam Vitals and nursing note reviewed. Constitutional: General: He is not in acute distress. Appearance: Normal appearance. He is not toxic-appearing. HENT: Nose: Nose normal. Mouth/Throat: Mouth: Mucous membranes are moist. Eyes: Conjunctiva/sclera: Conjunctivae normal. Cardiovascular: Rate and Rhythm: Normal rate and regular rhythm. Pulmonary: Effort: Pulmonary effort is normal. Breath sounds: Normal breath sounds. Abdominal: General: Abdomen is flat. Palpations: Abdomen is soft. Tenderness: There is no abdominal tenderness. There is no right CVA tenderness or left CVA tenderness. Skin: General: Skin is warm and dry. Neurological: Mental Status: He is alert. Assessment and Plan ASSESSMENT/PLAN: 1. Urinary frequency - ICD9: 788.41, ICD10: R35.0 (primary diagnosis) acute - UA positive for hematuria - Send urine for culture - Patient education for prevention given - UA DIP, URINE (POC) - URINE CULTURE 2. Microscopic hematuria - ICD9: 599.72, ICD10: R31.29 -Patient had left-sided flank pain and left lower quadrant abdominal pain. Current pain 1/10. Tenderness on exam. + blood in urine. Suspect possible ureteral stone. -At this time in the evening, unable to get kidney ultrasound. Will send urine for culture and refer to urology. -Recommend drinking plenty of fluids. If pain becomes severe, vomiting, inability to urinate, fevers, needs to be seen in ER. He understands. -We were able to schedule the patient an appointment with urology tomorrow. - CONSULT TO UROLOGY 3. Flank pain - ICD9: 789.09, ICD10: R10.9 -See above. Current pain 1/10. Advised if pain worsens, go to ER. -Has an appointment with urology tomorrow. Diagnosis and treatment plan were discussed and questions were answered to the patient's satisfaction. Pt acknowledged understanding of concepts and follow up plan. Specific signs and symptoms that would indicate the need for higher level of care were discussed in detail warranting prompt ER evaluation. ARIN Galan\ documented in this encounter [facility] Evaluation note Diagnosis Urinary frequency- Primary Microscopic hematuria Flank pain Abdominal pain, unspecified site [facility] Diagnosis Microscopic hematuria- Primary Urinary frequency Screening for genitourinary condition Screening for other and unspecified genitourinary condition [facility] Left wrist pain Pain in joint, forearm [facility] Diagnosis Screening for STD (sexually transmitted disease)- Primary Screening examination for venereal disease [facility] Diagnostic Procedure Only (Routine) - Pending Review Specialty Diagnoses / Procedures Referred By Royer t Referred To Contact US IMAGING Diagnoses Microscopic hematuria Procedures US KIDNEY/BLADDER US RETROPERITONEAL REAL TIME W/IMAGE COMPLETE Nany Carlos PA-C [address] [place] [address] [place] [address] Referral ID Status Reason Start Date Expiration Date Visits Requested Visits Authorized [id number] Pending Review Auto-Generat ed Referral 01/05/2024 02/03/2025 1 1 [facility] for referral (narrative)* Diagnostic Procedure Only (Urgent) - Closed Specialty Diagnoses / Procedures Referred By Contac t Referred To Contact XR IMAGING Diagnoses Left wrist pain Procedures XR WRIST GENERAL 3V PA/LAT/OBL LEFT RADEX WRIST COMPLETE MINIMUM 3 VIEWS Roberta Rainey APRN.[employer] [address] [place] [address] [place] [address] Referral ID Status Reason Start Date Expiration Date V isits Requested Visits Authorized [id number] Closed Auto-Generate d Referral 11/12/2021 12/12/2022 1 1 [facility] for visit Narrative* Diagnostic Procedure Only (Urgent) - Closed Specialty Diagnoses / Procedures Referred By Contac t Referred To Contact XR IMAGING Diagnoses Left wrist pain Procedures XR WRIST GENERAL 3V PA/LAT/OBL LEFT RADEX WRIST COMPLETE MINIMUM 3 VIEWS Roberta Rainey APRN.[employer] [address] [place] [address] [place] [address] Referral ID Status Reason Start Date Expiration Date V isits Requested Visits Authorized [id number] Closed Auto-Generate d Referral 11/12/2021 12/12/2022 1 1 [facility] Reason for Referral Specialty Diagnoses / Procedures Referred By Contac t Referred To Contact Urology Diagnoses Microscopic hematuria Procedures CONSULT TO UROLOGY OFFICE/OUTPATIENT NEW HIGH MDM 60 MINUTES [facility] [address] [place] [address] Referral ID Status Reason Start Date Expiration Date Visits Requested Visits Authorized [id number] Authorized PCP Requested Referral 01/04/2024 01/03/2025 1 1 Summary Purpose Family History No Family History Records Found Advance Directives No Advanced Directives Records Found Additional Source Comments Source Comments (unrecognize d section and content) In the event this informatio n is protected by the Federal Confidentiality of Alcohol and Drug Abuse Patient Records regulations: The Federal rules restrict any use of the information to criminally investigate or prosecute any alcohol or drug abuse patient.[facility] the event this information is protected by the Federal Confidentiality of Alcohol and Drug Abuse Patient Records regulations: The Federal rules restrict any use of the information to criminally investigate or prosecute any alcohol or drug abuse patient.[facility] the event this information is protected by the Federal Confidentiality of Alcohol and Drug Abuse Patient Records regulations: The Federal rules restrict any use of the information to criminally investigate or prosecute any alcohol or drug abuse patient.[facility] the event this information is protected by the Federal Confidentiality of Alcohol and Drug Abuse Patient Records regulations: The Federal rules restrict any use of the information to criminally investigate or prosecute any alcohol or drug abuse patient.[facility] the event this information is protected by the Federal Confidentiality of Alcohol and Drug Abuse Patient Records regulations: The Federal rules restrict any use of the information to criminally investigate or prosecute any alcohol or drug abuse patient.[facility] Reason for Visit (unrecogniz ed section and content) Reason Comments Urinary Frequency Frequency, urgency a nd lower abdominal pain x 2 days Reason Comments Hematuria New Patient Specialty Diagnoses / Procedures Referred By Contac t Referred To Contact Urology Diagnoses Microscopic hematuria Procedures CONSULT TO UROLOGY OFFICE/OUTPATIENT NEW HIGH MDM 60 MINUTES [facility] [address] [phone] Referral ID Status Reason Start Date Expiration Date V isits Requested Visits Authorized [id number] Closed PCP Requested Referral 01/04/2024 01/03/2025 1 1 Reason Comments STD No sx, wants checked Specialty Diagnoses / Procedures Referred By Contac t Referred To Contact [facility] / [facility] Diagnoses Std and Sti check Procedures EST SAME DAY [facility] [address] [place] [address] Referral ID Status Reason Start Date Expiration Date Visits Requested Visits Authorized [id number] New Request Financial Clearance Required - Self Pay 10/31/2024 1 1 Reason Comments Results Care Teams (unrecognized sec tion and content) [employer] Relationship Specialty Start Date End Date Dion Hilliard MD [address] [place] [phone] PCP - General Family Medicine 12/21/18 [employer] Relationship Specialty Start Date End Date Dion Hilliard MD [address] [facility] [place], [place] [id number] PCP - General Family Medicine 12/21/18 [employer] Relationship Specialty Start Date End Date Dion Hilliard MD [address] [facility] [place], [place] [id number] PCP - General [facility] 12/21/18 [employer] Relationship Specialty Start Date End Date Dion Hilliard MD [address] [facility] [place] [phone] PCP - General [facility] 12/21/18 [employer] Relationship Specialty Start Date End Date Dion Hilliard MD [address] [facility], [place] [phone] PCP - General Family Medicine 12/21/18 (unrecognized sect ion and content) No Status Records Found INFORMATION SOURCE (unrecogn ized section and content) DATE CREATED AUTHOR 08/04/2024 [facility] FOR RECORDS PERTAINING TO PATIENTS WHO ARE OR HAVE BEEN ENROLLED IN A CHEMICAL DEPENDENCY/SUBSTANCEABUSE PROGRAM, SOME INFORMATION MAY BE OMITTED. This clinical summary was aggregated from multiple sources. Caution should be exercised in using it in the provision of clinical care. This summary normalizes information from multiple sources, and as a consequence, information in this document may materially change the coding, format and clinical context of patient data. In addition, data may be omitted in some cases. CLINICAL DECISIONS SHOULD BE BASED ON THE PRIMARY CLINICAL RECORDS. [facility]. provides no warranty or guarantee of the accuracy or completeness of information in this document.
[2025-10-10 20:56] VITALS: BP 137/85; PULSE 69; RESP 16; O2SAT 98
[2025-10-11 00:26] VITALS: BP 120/71; PULSE 60; RESP 17; O2SAT 99
[2025-10-11 04:00] VITALS: BP 119/70; PULSE 61; RESP 16; O2SAT 96
[2025-10-11 05:17] VITALS: BP 119/70; PULSE 61; RESP 16; TEMP 36.4; O2SAT 96
== END 2025-10-11 07:50 ==
PROVIDERS: Emergency Provider Emergency Medicine; PCP Family Medicine; Visit Provider Emergency Medicine
DX: T41.292A Poisoning by other general anesthetics, intentional self-harm, initial encounter (principal); F17.210 Nicotine dependence, cigarettes, uncomplicated
CPT/HCPCS: 80053; 80143; 80179; 80307; 82077; 85025; 99285; A4216